=== PATIENT | male | born 1955 | race Caucasian/White ===

== ENCOUNTER 2021-03-23 10:46 | Outpatient (REF) | payer BC, SELFPAY ==
--- NOTE | ~2021-03-23 | FL_ITS ---
EXAMINATION: FL BARIUM SWALLOW CLINICAL INFORMATION: Dysphagia. COMPARISON: None. TECHNIQUE: Barium swallow examination is performed using fluoroscopic evaluation in addition to multiple fluoroscopic spot views. The patient is imaged both upright and prone and using both thick and thin sulfate along with effervescent granules. Fluoroscopy time: 1.7 minutes DAP: 12.223 Gycm2 Images: 41 FINDINGS: Following oral administration of thick barium, barium-coated turkey and effervescent granules, there is normal propagation of bolus from the oral cavity through the pharynx and esophagus and into the stomach in the upright view. On administration of thin barium in upright view and supine view, there is normal propagation of bolus into the esophagus and stomach without obstruction. There is no laryngeal penetration or aspiration. No gastroesophageal reflux or hiatal hernia seen in supine lying position. FL/FL barium swallow IMPRESSION: Unremarkable barium swallow exam.
== END 2021-03-23 10:47 | disposition home or self-care (01) ==
LOC: HO.XRAY 10:46
PROVIDERS: PCP Internal Medicine; Visit Provider Otolaryngology
DX: R13.10 Dysphagia, unspecified (principal)
CPT/HCPCS: 74220

== ENCOUNTER 2022-06-07 07:25 | Day surgery (SDC) | payer BC, SELFPAY ==
[2022-06-02 13:52] VITALS: BMI 28.5
--- NOTE | 2022-06-04 09:41 | MHC.SHP ---
Pre-Procedural Eval Section A Date of Service: 06/04/22 The patient is an INPATIENT: No Changes since office visit: No Cold of Flu in the past 2 weeks, No New Medical Problems, No Changes in Medication and No Patient answered all questions The History & Physical has been completed within 30 days and I have reviewed it.: Yes Section B Chief Complaint: Age-related nuclear cataract, right eye Allergies: Allergies Allergy/AdvReac Type Severity Reaction Status Date / Time No Known Drug Allergies Allergy Unknown NONE Unverified 11/15/19 17:59 [NO KNOWN DRUG ALLERGIES] Plan Diagnosis/Plan: Unchanged I have reviewed the history and physical and performed a pertinent physical examination on my patient. No changes have occurred unless specified. Time Spent With Patient Time: Total time managing care of this patient today ____ minutes.
[2022-06-07 08:22] VITALS: BP 146/86; PULSE 56; RESP 18; TEMP 36.6; O2SAT 99
[2022-06-07] MEDS: Tetracaine HCl/PF 0.5% Oph Sol 4 ML DROPS 1 DROP EYE-RIGHT (08:23)
[2022-06-07] MEDS: Phenylephrine HCL 2.5% Oph SoL 2 ML BOTTLE 1 DROP EYE-RIGHT ×3 (08:24→08:33)
[2022-06-07] MEDS: Tropicamide 1 % Ophth Sol 3 ML BTL 1 DROP EYE-RIGHT ×3 (08:24→08:34)
[2022-06-07] MEDS: Ketorolac Tromethamine 0.5% Op 5 ML DROPS 1 DROP EYE-RIGHT ×3 (08:24→08:34)
[2022-06-07] MEDS: Cyclopentolate 1 % Ophth Sol 2 ML DRPBTL 1 DROP EYE-RIGHT ×3 (08:24→08:34)
[2022-06-07] MEDS: Lactated Ringers 500 ML 50 ML IVCONT (08:34)
--- NOTE | 2022-06-07 08:48 | HO.ANESPROP2 ---
HPI - Anesthesia Eval Consult details Narrative: 66 M for right catarct extraction CAD s/p stent placement . no CP . functional status greater than 4 mets As per PCP , optimized to proceed with procedure PMFSH Past Medical History Medical History Benign hypertension Cataract GERD (gastroesophageal reflux disease) History of CAD (coronary artery disease) Hx of myocardial infarction Hyperlipidemia Meralgia paraesthetica Functional capacity: independent ambulation Family History Family history of problems with anesthesia: No Surgical History History of Problems with Anesthesia: No Social History Social History Patient Tobacco Use Status: Never used Tobacco Are you DNR?: No Advance Directives: No Advance Directives Information Provided: Yes Nutrition Risks: No Nutritional Risk Meds Allergies Allergy/AdvReac Type Severity Reaction Status Date / Time No Known Drug Allergies Allergy Unknown NONE Verified 06/07/22 08:35 [NO KNOWN DRUG ALLERGIES] Active Medications: Current Medications Lactated Ringer's (Lr) 500 mls @ 50 mls/hr IVCONT .Q10H GEORGE Last Admin: 06/07/22 08:34 Dose: 50 mls/hr Povidone Iodine (Povidone Iodine 5 % Ophth Soln 30 Ml Bottle) 1 appl EYE-RIGHT PREOP PRN PRN Reason: Pre-Op Surgical Implant Prophy Home Medications Medication Instructions Recorded Confirmed Last Taken Type amlodipine 5 mg tablet 5 mg PO DAILY 06/02/22 06/02/22 06/07/22 History aspirin 81 mg tablet,delayed 81 mg PO DAILY 06/02/22 06/02/22 Unknown History release atorvastatin 40 mg tablet 40 mg PO BEDTIME 06/02/22 06/02/22 Unknown History metoprolol succinate 50 mg 50 mg PO DAILY 06/02/22 06/02/22 Unknown History tablet,extended release 24 hr Exam Exam Date and Time: June 07, 2022 0848 Height,Weight and Vital Signs: Height 5 ft 5 in Weight 77.734 kg Last Vital Signs Temp 97.9 F 06/07/22 08:22 Pulse 56 06/07/22 08:22 Resp 18 06/07/22 08:22 BP 146/86 H 06/07/22 08:22 Pulse Ox 99 06/07/22 08:22 O2 Del Method Room Air 06/07/22 08:22 Airway Mallampati Class: IV Neck ROM: Full Loose/Missing/Broken Teeth: Yes (fillings , caps ) Assessment and Plan Assessment Anesthesia Assessment: Anesthesia Plan Discussed and Chart Reviewed Final Anesthetic Review Family History of Problems with Anesthesia: No History of Problems with Anesthesia: No NPO: Yes ASA Class: III Final Preanesthetic Review: Meds/Allgs Chart Reviewed, Consent Obtained/Reviewed and Anes Risks/Benef Reviewed Patient Risk: Intermediate Procedure Risk: Intermediate Anesthetic Plan Anesthetic Plan: MAC: Disposition: Standard PACU
--- NOTE | 2022-06-07 09:12 | HO.PNOPHT ---
Ophthalmology Procedure Procedure Date of Service: 06/07/22 Ophthalmology Viscoelastic: Healthomas Duet Dual Pack Pro Ophthalmology Lenses: TECNIS [id number] (18.5) Procedure Notes: PREOPERATIVE DIAGNOSIS: Decreased visual acuity right eye secondary to cataract POSTOPERATIVE DIAGNOSIS: Same PROCEDURE: Right cataract extraction with intraocular lens insertion SURGEON: Juan Alberto Bowen M.D. ANESTHESIA: Topical/MAC ESTIMATED BLOOD LOSS: None COMPLICATIONS: None After obtaining informed consent, the patient was brought to the operating room suite and placed in the supine position. After adequate sedation per anesthesia, topical drops of Tetracaine were given to the right eye. The eye was then prepped and draped in the usual sterile fashion. The operating room microscope was then positioned over the operative eye and a lid speculum placed. A paracentesis was created. Viscoelastic was then instilled into the anterior chamber. A three plane incision was then created temporally, utilizing a 2.85 mm keratome. Capsulotomy forceps were then utilized to create a circular tear capsulotomy. Hydrodissection and hydrodelineation were carried out until adequate mobilization of the nucleus occurred. Phacoemulsification was then utilized to remove the dense central nucleus followed by removal of the cortical material utilizing the automated aspiration irrigation unit. Viscoelastic was instilled into the posterior capsular bag followed by placement of a posterior chamber intraocular lens without difficulty. The residual Viscoelastic was then removed utilizing the automated IA machine. The wound was checked and found to be watertight. The patient tolerated the procedure well and the lid speculum was removed. Intracameral injection of Vigamox 0.1 mL followed by a subtenon injection of Kenalog-40 0.2 mL were administered. The patient will be seen in the a.m.
[2022-06-07 09:39] VITALS: BP 143/77; PULSE 53; RESP 16; TEMP 36.2; O2SAT 99
== END 2022-06-07 09:46 | disposition home or self-care (01) ==
PROVIDERS: PCP Internal Medicine; Visit Provider Ophthalmology
PROC: (CPT 66985; principal; 2022-06-07 09:30)
DX: H25.11 Age-related nuclear cataract, right eye (principal); I10 Essential (primary) hypertension
CPT/HCPCS: 66984; J2250; J3010; J3301; V2632

== ENCOUNTER 2022-06-21 06:53 | Day surgery (SDC) | payer BC, SELFPAY ==
[2022-06-02 13:53] VITALS: BMI 28.5
--- NOTE | 2022-06-17 15:50 | MHC.SHP ---
Pre-Procedural Eval Section A Date of Service: 06/17/22 The patient is an INPATIENT: No Changes since office visit: No Cold of Flu in the past 2 weeks, No New Medical Problems, No Changes in Medication and No Patient answered all questions The History & Physical has been completed within 30 days and I have reviewed it.: Yes Section B Chief Complaint: Age-related nuclear cataract, left eye Allergies: Allergies Allergy/AdvReac Type Severity Reaction Status Date / Time No Known Drug Allergies Allergy Unknown NONE Verified 06/07/22 08:35 [NO KNOWN DRUG ALLERGIES] Plan Diagnosis/Plan: Unchanged I have reviewed the history and physical and performed a pertinent physical examination on my patient. No changes have occurred unless specified. Time Spent With Patient Time: Total time managing care of this patient today ____ minutes.
[2022-06-21 07:38] VITALS: BP 137/76; PULSE 64; RESP 16; TEMP 36.3; O2SAT 99
[2022-06-21 07:45] VITALS: BMI 27.9
[2022-06-21] MEDS: Tetracaine HCl/PF 0.5% Oph Sol 4 ML DROPS 1 DROP EYE-LEFT (07:50)
--- NOTE | 2022-06-21 07:50 | HO.ANESPROP2 ---
HPI - Anesthesia Eval Consult details Narrative: Left eye cataract + IOL [facility] Past Medical History Medical History Benign hypertension Cataract GERD (gastroesophageal reflux disease) History of CAD (coronary artery disease) Hx of myocardial infarction Hyperlipidemia Meralgia paraesthetica Family History Family history of problems with anesthesia: No Surgical History Surgical History History of elbow surgery History of surgery on lower extremity History of Problems with Anesthesia: No Social History Social History Patient Tobacco Use Status: Never used Tobacco Use of substances other than those prescribed or required for medical reasons: No Are you DNR?: No Advance Directives: No Advance Directives Information Provided: Yes Meds Allergies Allergy/AdvReac Type Severity Reaction Status Date / Time No Known Drug Allergies Allergy Unknown NONE Verified 06/21/22 07:42 [NO KNOWN DRUG ALLERGIES] Active Medications: Current Medications Cyclopentolate HCl (Cyclopentolate 1 % Ophth Anca 2 Ml Drpbtl) 1 drop EYE-LEFT Q5M GEORGE Stop: 06/21/22 07:56 Lactated Ringer's (Lr) 500 mls @ 50 mls/hr IV .Q10H GEORGE Stop: 06/21/22 17:44 Ketorolac Tromethamine (Ketorolac Tromethamine 0.5% Op 5 Ml Drops) 1 drop EYE-LEFT Q5M GEORGE Stop: 06/21/22 07:56 Phenylephrine HCl (Phenylephrine Hcl 2.5% Oph Anca 2 Ml Bottle) 1 drop EYE-LEFT Q5M GEORGE Stop: 06/21/22 07:56 Povidone Iodine (Povidone Iodine 5 % Ophth Soln 30 Ml Bottle) 1 appl EYE-LEFT PREOP PRN PRN Reason: Pre-Op Surgical Implant Prophy Tropicamide (Tropicamide 1 % Ophth Anca 3 Ml Btl) 1 drop EYE-LEFT Q5M GEORGE Stop: 06/21/22 07:56 Home Medications Medication Instructions Recorded Confirmed Last Taken Type amlodipine 5 mg tablet 5 mg PO DAILY 06/02/22 06/21/22 06/21/22 History aspirin 81 mg tablet,delayed 81 mg PO DAILY 06/02/22 06/21/22 06/13/22 History release atorvastatin 40 mg tablet 40 mg PO BEDTIME 06/02/22 06/21/22 Unknown History metoprolol succinate 50 mg 50 mg PO DAILY 06/02/22 06/21/22 Unknown History tablet,extended release 24 hr Exam Exam Date and Time: June 21, 2022 0750 Height,Weight and Vital Signs: Height 5 ft 5 in Weight 76.204 kg Last Vital Signs Temp 97.3 F 06/21/22 07:38 Pulse 64 06/21/22 07:38 Resp 16 06/21/22 07:38 BP 137/76 06/21/22 07:38 Pulse Ox 99 06/21/22 07:38 O2 Del Method Room Air 06/21/22 07:38 Airway Mallampati Class: III TM Dist: >3cm Neck ROM: Full Loose/Missing/Broken Teeth: Yes (chipped and cracked globally) Heart: rrr+[id number] Lungs: cta b/l Assessment and Plan Assessment Anesthesia Assessment: Anesthesia Plan Discussed and Chart Reviewed Final Anesthetic Review Family History of Problems with Anesthesia: No History of Problems with Anesthesia: No NPO: Yes ASA Class: III Final Preanesthetic Review: No Changes in Pt Med Stat, Meds/Allgs Chart Reviewed, Consent Obtained/Reviewed and Anes Risks/Benef Reviewed Patient Risk: Intermediate Procedure Risk: Intermediate Assessment/Block/Sedation in SS: Assess/Block/Sedation-SS Anesthetic Plan Anesthetic Plan: MAC: and Agree w/ Assess. and Plan Disposition: Standard PACU
[2022-06-21] MEDS: Cyclopentolate 1 % Ophth Sol 2 ML DRPBTL 1 DROP EYE-LEFT ×3 (07:51→08:07)
[2022-06-21] MEDS: Tropicamide 1 % Ophth Sol 3 ML BTL 1 DROP EYE-LEFT ×3 (07:53→08:09)
[2022-06-21] MEDS: Ketorolac Tromethamine 0.5% Op 5 ML DROPS 1 DROP EYE-LEFT ×3 (07:55→08:11)
[2022-06-21] MEDS: Lactated Ringers 500 ML 50 ML IV (07:56)
[2022-06-21] MEDS: Phenylephrine HCL 2.5% Oph SoL 2 ML BOTTLE 1 DROP EYE-LEFT ×3 (07:57→08:13)
--- NOTE | 2022-06-21 08:36 | HO.PNOPHT ---
Ophthalmology Procedure Procedure Date of Service: 06/21/22 Ophthalmology Viscoelastic: Healthomas Duet Dual Pack Pro Ophthalmology Lenses: TECNIS [id number] (19.5) Procedure Notes: PREOPERATIVE DIAGNOSIS: Decreased visual acuity left eye secondary to cataract POSTOPERATIVE DIAGNOSIS: Same PROCEDURE: Left cataract extraction with intraocular lens insertion SURGEON: Juan Alberto Bowen M.D. ANESTHESIA: Topical/MAC ESTIMATED BLOOD LOSS: None COMPLICATIONS: None After obtaining informed consent, the patient was brought to the operation room suite and placed in the supine position. After adequate sedation per anesthesia, topical drops of Tetracaine were given to the left eye. The eye was then prepped and draped in the usual sterile fashion. The operating room microscope was then positioned over the operative eye and a lid speculum placed. A paracentesis was created. Viscoelastic was then instilled into the anterior chamber. A three plane incision was then created temporally, utilizing a 2.85 mm keratome. Capsulotomy forceps were then utilized to create a circular tear capsulotomy. Hydrodissection and hydrodelineation were carried out until adequate mobilization of the nucleus occurred. Phacoemulsification was then utilized to remove the dense central nucleus followed by removal of the cortical material utilizing the automated aspiration irrigation unit. Viscoat elastic was instilled into the posterior capsular bag followed by placement of a posterior chamber intraocular lens without difficulty. The residual Viscoat elastic was then removed utilizing the automated IA machine. The wound was check and found to be watertight. The patient tolerated the procedure well and the lid speculum was removed. Intracameral injection of Vigamox 0.1 mL followed by a subtenon injection of Kenalog-40 0.2 mL were administered. The patient will be seen in the a.m.
[2022-06-21 08:57] VITALS: BP 143/81; PULSE 62; RESP 18; TEMP 36.7; O2SAT 97
== END 2022-06-21 09:13 | disposition home or self-care (01) ==
PROVIDERS: PCP Internal Medicine; Visit Provider Ophthalmology
PROC: (CPT 66985; principal; 2022-06-21 08:50)
DX: H25.12 Age-related nuclear cataract, left eye (principal); H52.4 Presbyopia; H11.153 Pinguecula, bilateral; H18.413 Arcus senilis, bilateral; H31.001 Unspecified chorioretinal scars, right eye; I10 Essential (primary) hypertension; E78.00 Pure hypercholesterolemia, unspecified; Z79.899 Other long term (current) drug therapy
CPT/HCPCS: 66984; J2250; J3010; J3301; V2632

== ENCOUNTER 2022-09-23 09:04 | Outpatient (REF) | payer BC, SELFPAY ==
[2022-09-23 12:24] LABS: Cholesterol 118 mg/dL; HDL Cholesterol 44 mg/dL; LDL Cholesterol Calculated 58 mg/dl; Triglycerides 82 mg/dL
[2022-09-23 13:00] LABS: Alanine Aminotransferase 27 U/L (0-40); Albumin Level 4.3 g/dL (3.5-5.0); Alkaline Phosphatase 83 U/L (39-117); Anion Gap 13 (12-20); Aspartate Amino Transferase 22 U/L (5-37); Bilirubin Direct 0.3 mg/dL (0.0-0.5); Bilirubin Total 0.8 mg/dL (0.0-1.0); Blood Urea Nitrogen 13 mg/dL (9-16); Calcium 9.1 mg/dL (8.4-10.2); Carbon Dioxide 23 mmol/L (22-29); Chloride 107 mmol/L (96-108); Estimated Glomerular Filt Rate > 60; Glucose Random 96 mg/dL (60-115); Sodium 139 mmol/L (135-145); Total Protein 7.5 g/dL (6.5-8.0)
[2022-09-23 13:02] LABS: Prostate Specific Antigen 5.18 ng/mL (<0.05-4.0)
[2022-09-24 08:38] LABS: ~HepC Num1 0.09 S/CO (0.00-0.79); ~Hepatitis C Antibody Nonreactive (Nonreactive)
== END 2022-09-23 09:05 | disposition home or self-care (01) ==
LOC: HO.HHCL 09:04
PROVIDERS: Visit Provider Internal Medicine
DX: Z00.00 Encounter for general adult medical examination without abnormal findings (principal); Z12.5 Encounter for screening for malignant neoplasm of prostate; E78.2 Mixed hyperlipidemia; I10 Essential (primary) hypertension
CPT/HCPCS: 36415; 80048; 80061; 80076; 84153; 86803

== ENCOUNTER 2022-11-22 09:00 | Outpatient (AMB) | payer BC, SELFPAY ==
--- NOTE | 2022-11-22 09:08 | MHC.OFFVIS ---
Intake Intake Visit Reasons: Elevated PSA 5.18 Intake Note: New Patient presents for initial visit elevated psa (psa 5.18) Urology Medications: none Blood Thinner: aspirin Rag Sorter Required: Yes Rag Sorter Name: Nguyen Accompanied by: Self / Same As Patient Allergies No Known Drug Allergies [NO KNOWN DRUG ALLERGIES] Allergy (Unknown, Verified 11/22/22 09:54) NONE Medication List - Last Reconciled 11/22/22 by DUSTIN GutiérrezP- amlodipine 5 mg PO DAILY aspirin 81 mg PO DAILY atorvastatin 40 mg PO BEDTIME metoprolol succinate ER 50 mg PO DAILY tadalafil (Cialis) 5 mg PO DAILY 90 days HPI HPI Comments History of Present Illness Details Wilver is a very pleasant 67-year-old Armenian-speaking male patient of Dr. Galvez. He has a past medical history of cataracts, myocardial infarction with stent placement in 2005 in [place], CAD, GERD, hyperlipidemia, and hypertension. He presents to the office today as a new patient for an elevated PSA. In discussion with the patient today he reports to be doing and feeling well. In review of patient's chart it appears PSAs are as follows. 06/16--3.4 09/19--5.2 When asked patient reports family history of prostate cancer. He reports his father had prostate cancer and at the age of 92. He otherwise denies any bothersome urinary issues at this time. He denies urinary urgency, urinary frequency, incontinence, nocturia, hematuria, dysuria, foul smelling urine, changes to urinary stream, flank pain, fever, and or chills. He is happy with his current voiding parameters. He does however report noting issues with erectile dysfunction over the last 5-6 months. He reports previously he was able to obtain and maintain erections approximately 2 times per week to have sexual intercourse with his however has been having issues with premature ejaculation as well as erections are adequate for penetration. Discussed at length potential causes for elevated PSA. Discussed lifestyle modifications to assist with premature ejaculation as well as erectile dysfunction. In office urinalysis results reviewed with the patient today. JOVANI offered however patient reports PCP has already performed JOVANI and it was noted to be normal. [facility] Medical History Cataract Hx of myocardial infarction History of CAD (coronary artery disease) GERD (gastroesophageal reflux disease) Benign hypertension Hyperlipidemia Meralgia paraesthetica Surgical History History of elbow surgery History of surgery on lower extremity Social History Patient Tobacco Use Status: Never used Tobacco Review of Systems Const Reports as per HPI Eyes Reports no additional complaints ENT Reports no additional complaints Card Reports as per HPI Resp Reports no additional complaints GI Reports as per HPI Reports as per HPI Musc Reports no additional complaints Neuro Reports no additional complaints Psych Reports no additional complaints Endo Reports no additional complaints Rios/Lymph Reports no additional complaints Aller/Immun Reports no additional complaints Physical Exam Const General: cooperative, healthy appearing, comfortable, no acute distress, well developed, alert and awake Orientation/consciousness: patient oriented x3 Limitations: no limitations HEENT Head: Yes normal to inspection, Yes normocephalic and Yes atraumatic Ears: hearing grossly normal bilaterally Eyes General: appearance normal, both eyes and all related structures Neck Neck: Yes normal visual inspection and Yes trachea midline Chest Chest palpation & inspection: normal inspection of the chest Resp Effort & Inspection: normal respiratory effort and able to speak in complete sentences Cardio Rate: regular rate GI Inspection: Yes normal to inspection General: Yes no CVA tenderness Back/Spine/Pelvis Back: no CVA tenderness Skin General skin exam: no rashes or lesions noted Neuro General: patient oriented x3 Extrem General: Yes normal to inspection Psych Appearance: grossly normal and well kempt Mental Status: mental status grossly normal Speech and movement: Normal speech and movement present and Clear speech present Affect: normal affect Attitude: cooperative Thought process: Normal thought process present Thought content: Normal thought content present Insight: Good insight present (Psych) Judgement: Good judgement present (Psych) Results AMB Urinalysis, Automated UA Leukoctes 0 Nikunj/uL Last Edit by Ash Coe on 11/22/22 09:34 UA Nitrite Negative Last Edit by Ash Coe on 11/22/22 09:34 UA Urobilinogen 0.2 mg/dL Last Edit by Ash Coe on 11/22/22 09:34 UA Protein 0 mg/dL Last Edit by Ash Coe on 11/22/22 09:34 UA pH 5.5 Last Edit by Ash Coe on 11/22/22 09:34 UA Blood 0 Juan Diego/uL Last Edit by Ash Arcenicolas on 11/22/22 09:34 UA Specific [place] 1.025 Last Edit by Ash Arcenicolas on 11/22/22 09:34 UA Ketone Negative Last Edit by Kemkhurram Yazminnicolas on 11/22/22 09:34 UA Bilirubin 0 mg/dL Last Edit by Kemkhurram Yazminnicolas on 11/22/22 09:34 UA Glucose 0 mg/dL Last Edit by Kemkhurram Yazminnicolas on 11/22/22 09:34 Results Reviewed Results Reviewed: Laboratory Last Values Urine pH (Auto) 5.5 11/22/22 09:19 Specific [place] (Auto) 1.025 11/22/22 09:19 Urine Protein (Auto) 0 mg/dL 11/22/22 09:19 Glucose (UA)(Auto) 0 mg/dL 11/22/22 09:19 Urine Ketones (Auto) Negative 11/22/22 09:19 Urine Blood (Auto) 0 Juan Diego/uL 11/22/22 09:19 Urine Nitrite (Auto) Negative 11/22/22 09:19 Urine Bilirubin (Auto) 0 mg/dL 11/22/22 09:19 Urine Urobilinogen (Auto) 0.2 mg/dL 11/22/22 09:19 Leukocyte Esterase (Auto) 0 Nikunj/uL 11/22/22 09:19 Assessment & Plan Assessment & Plan (1) Elevated PSA: Code(s): R97.20 - Elevated prostate specific antigen [PSA] (2) Erectile dysfunction: Code(s): N52.9 - Male erectile dysfunction, unspecified Plan In office urinalysis results reviewed with the patient today. PSA results reviewed with the patient today; as noted above. Discussed obtaining redraw of PSA with no sex the night before, no caffeine morning of, and no heavy lifting 1-2 days prior to lab draw. Discussed obtaining retroperitoneal ultrasound for further assessment evaluation. Start 5 mg of Cialis daily as discussed and prescribed. Discussed lifestyle modifications with premature ejaculation and erectile dysfunction Discussed at length potential causes for elevated PSA Follow-up in 6 weeks with lab and imaging to be completed prior; or sooner with any issues, concerns, and or questions. Orders: Orders AMB Urinalysis Automated Today Z13.9 - Encounter for screening, unspecified US retroperitoneal comp Today R39.9 - Unspecified symptoms and signs involving the genitourinary system PSA,Total (Free>4and<10) Today R97.20 - Elevated prostate specific antigen [PSA] Medications: New tadalafil (Cialis) JANIE [id number] [facility] Group [id number] 5 mg PO DAILY 90 days 90 tabs 0RF Patient Instructions: The patient had an opportunity to ask questions regarding the treatment plan. All questions were answered. Physical exam, labs, and imaging were discussed and reviewed in detail. As well as risks, benefits, and discussion of treatment choices. No major barriers to understanding were identified. The patient expressed understanding and agreement with the above treatment plan. The patient was made aware they should contact our office by phone for worsening of their current condition, the appearance of new symptoms, or with any questions or concerns. Compliance is encouraged with any medications and follow up testing that is ordered. It is a privilege to be allowed the opportunity to participate in? your urological care.? Again, if you have any questions or concerns If you have any questions or concerns please do not hesitate to contact me. The office is [phone]. This note is constructed using voice recognition software. While every effort has been made to ensure accuracy director of compliance errors may have been included. Yours sincerely, CARLITO Gutiérrez Coding Level of Care Code New Pt Level 4 (04981) Diagnoses Elevated PSA R97.20 Erectile dysfunction N52.9
== END 2022-11-22 09:53 | disposition home or self-care (01) ==
PROVIDERS: PCP Internal Medicine; Visit Provider Nurse Practitioner Family
DX: R97.20 Elevated prostate specific antigen [PSA] (principal); N52.9 Male erectile dysfunction, unspecified; Z13.9 Encounter for screening, unspecified
CPT/HCPCS: 99204

== ENCOUNTER → 2022-11-22 09:00 | Outpatient (BNVA) | payer BC, SELFPAY | PROVIDERS: PCP Internal Medicine; Visit Provider Nurse Practitioner Family | DX: R97.20 Elevated prostate specific antigen [PSA] (principal); N52.9 Male erectile dysfunction, unspecified | CPT/HCPCS: 81003 ==

== ENCOUNTER 2022-12-08 11:19 | Outpatient (AMB) | payer BC, SELFPAY ==
--- NOTE | 2022-12-08 11:34 | MHC.OFFVIS ---
Intake Vital Signs 12/08/22 11:35 Height 5 ft 5 in Weight 169 lb BMI 28.1 BP 123/71 Blood Pressure Location Rt brachial Position Sitting Intake Visit Reasons: Recall colonoscopy Intake Note: This patient presents for an assessment for recall colonoscopy screening. Patient c/o; last colonoscopy 10/04/2011, reports no issues or complaints at this time. Sanding Machine Tender Required: Yes Sanding Machine Tender Language: Acidizer Name: Trey Information Interpreted: non-clinical & clinical Accompanied by: Self / Same As Patient Allergies No Known Drug Allergies [NO KNOWN DRUG ALLERGIES] Allergy (Unknown, Verified 12/08/22 11:41) NONE Medication List - Last Reconciled 12/08/22 by Timo Kaye MD amlodipine 5 mg PO DAILY atorvastatin 40 mg PO BEDTIME metoprolol succinate ER 50 mg PO DAILY tadalafil (Cialis) 5 mg PO DAILY 90 days HPI Recall colonoscopy HPI Details 67-year-old male referred for screening colonoscopy. His last colonoscopy was in 2011. This was unremarkable at that time except for what appeared to be an anal fissure. He denies any GI complaints. He denies any family history of colon cancer. He says he is in good health overall. [facility] Medical History (Updated 12/08/22 @ 11:56 by Timo Kaye MD) Encounter for screening colonoscopy Cataract Hx of myocardial infarction History of CAD (coronary artery disease) GERD (gastroesophageal reflux disease) Benign hypertension Hyperlipidemia Meralgia paraesthetica Surgical History History of elbow surgery History of surgery on lower extremity Family History (Updated 12/08/22 @ 11:43 by TRACE Guy) Father Prostate cancer Social History Patient Tobacco Use Status: Never used Tobacco Review of Systems Const Denies chills and Denies fever(s) Card Denies chest pain, Denies dyspnea and Denies dyspnea on exertion Resp Denies cough, Denies dyspnea and Denies dyspnea on exertion GI Denies hematochezia and Denies change in bowel habits Denies hematuria and Denies difficulty urinating Musc Denies back pain and Denies limited range of motion Neuro Denies focal weakness and Denies convulsions Psych Denies depression and Denies mood swings Physical Exam Vital Signs: Last Vital Signs BP 123/71 12/08/22 11:35 BMI result Body Mass Index 28.1 Const General: comfortable and no acute distress Orientation/consciousness: patient oriented x3 Neck Neck: Yes no lymphadenopathy Resp Auscultation: clear to auscultation bilaterally Cardio Rhythm: regular rhythm GI Palpation (GI): Soft to palpation, nontender and no guarding Neuro General: patient oriented x3 Assessment & Plan Assessment & Plan (1) Encounter for screening colonoscopy: Code(s): Z12.11 - Encounter for screening for malignant neoplasm of colon Plan: I explained him the technique of colonoscopy for screening. I reviewed the risks including but not limited to bleeding and perforation, as well as the benefits and alternatives. He understands he wants to proceed. Coding Level of Care Code New Pt Level 3 (11124) Diagnoses Encounter for screening colonoscopy Z12.11
[2022-12-08 11:35] VITALS: BP 123/71; BMI 28.1
== END 2022-12-08 12:04 | disposition home or self-care (01) ==
PROVIDERS: PCP Internal Medicine; Referring Provider Internal Medicine; Visit Provider Surgery
DX: Z12.11 Encounter for screening for malignant neoplasm of colon (principal)
CPT/HCPCS: 99203

== ENCOUNTER → 2022-12-08 11:19 | Outpatient (BNVA) | payer BC, SELFPAY | PROVIDERS: PCP Internal Medicine; Referring Provider Internal Medicine; Visit Provider Surgery ==

== ENCOUNTER 2022-12-28 09:00 | Outpatient (REF) | payer BC, SELFPAY ==
[2022-12-28 12:10] LABS: PSA,Total (Free>4and<10) 4.82 ng/mL (0.00-4.00)
[2022-12-29 10:23] LABS: Free Prostate Spec Ag 0.5 ng/mL; Percent Free Prostate Spec Ag 13 % (calc) (>25)
== END 2022-12-28 09:01 | disposition home or self-care (01) ==
LOC: HO.HHCL 09:00
PROVIDERS: Visit Provider Nurse Practitioner Family
DX: Z12.5 Encounter for screening for malignant neoplasm of prostate (principal); R97.20 Elevated prostate specific antigen [PSA]
CPT/HCPCS: 36415; 84153; 84154

== ENCOUNTER 2023-01-03 09:35 | Outpatient (REF) | payer BC, SELFPAY ==
--- NOTE | ~2023-01-03 | US_ITS ---
EXAMINATION: US RETROPERITONEAL COMPLETE (RENAL) CLINICAL INFORMATION: Elevated PSA. COMPARISON: None available. TECHNIQUE: Real-time imaging of the kidneys and bladder. Limited visualization due to bowel gas. FINDINGS: RIGHT KIDNEY: 10.9 x 4.7 x 5.6 cm (SAG x AP x TRV). No hydronephrosis. No renal calculi. Renal cortical thickness is normal. Limited visualization. LEFT KIDNEY: 11.9 x 7.7 x 6.7 cm (SAG x AP x TRV). No hydronephrosis. No renal calculi. Renal cortical thickness is normal. Limited visualization. BLADDER: Well distended and unremarkable. Bilateral ureteral jets are demonstrated. Prevoid bladder volume is 249.0 mL. Postvoid bladder volume is 37.0 mL. The prostate volume is 28.0 mL. US/US retroperitoneal comp IMPRESSION: No hydronephrosis. No renal calculi. Limited visualization. Prostate volume 28.0 mL. Postvoid bladder volume is 37.0 mL.
== END 2023-01-03 09:36 | disposition home or self-care (01) ==
LOC: HO.US 09:35
PROVIDERS: PCP Internal Medicine; Visit Provider Nurse Practitioner Family
DX: R39.9 Unspecified symptoms and signs involving the genitourinary system (principal)
CPT/HCPCS: 76770

== ENCOUNTER 2023-01-04 08:15 | Outpatient (AMB) | payer BC, SELFPAY ==
--- NOTE | 2023-01-04 08:19 | MHC.OFFVIS ---
Intake Intake Visit Reasons: 6w/US/PSA(set) Intake Note: Patient presents for follow up visit elevated psa/ultrasound (psa 4.82) (imaging 01/03/23) Urology Medications: tadalafil Blood Thinner: none Tie Mill Operator Required: Yes Tie Mill Operator Name: JAMAL RACHELReese MICHEL Accompanied by: Self / Same As Patient Allergies No Known Drug Allergies [NO KNOWN DRUG ALLERGIES] Allergy (Unknown, Verified 01/05/23 16:35) NONE Medication List - Last Reconciled 01/05/23 by MAKAYLA Gutiérrez- amlodipine 5 mg PO DAILY atorvastatin 40 mg PO BEDTIME finasteride 5 mg PO DAILY 90 days metoprolol succinate ER 50 mg PO DAILY sodium,potassium,mag sulfates 17.5-3.13-1.6 gram (Suprep Bowel Prep Kit) DILUTE; drink full amount early evening before AND next morning at least 2 hr before procedure; follow w 960 mL water PO tadalafil (Cialis) 5 mg PO DAILY 90 days HPI HPI Comments History of Present Illness Details Wilver is a very pleasant 67-year-old Albanian-speaking male patient of Dr. Galvez. He has a past medical history of cataracts, myocardial infarction with stent placement in 2005 in [place], CAD, GERD, hyperlipidemia, and hypertension. He presents to the office today for follow-up. Of note, patient was seen approximately 6 weeks ago as a new patient for an elevated PSA at which time a retroperitoneal ultrasound and redraw of PSA were ordered for further assessment evaluation. These results reviewed with the patient today. Bilateral kidneys with no calculi and or hydronephrosis noted. The bladder is well distended and unremarkable. Prostate volume is approximately 28 mL. PSAs are as follows. 06/16--3.4 09/19--5.2 12/20--4.8 % free PSA 13% Patient with a family history of prostate cancer. He reports his father had prostate cancer at the age of 92. He otherwise denies any bothersome urinary issues at this time. He denies urinary urgency, urinary frequency, incontinence, nocturia, hematuria, dysuria, foul smelling urine, changes to urinary stream, flank pain, fever, and or chills. He is happy with his current voiding parameters. PCPT risk calculator reviewed 49% chance at biopsy is negative for prostate cancer, 36% chance of low-grade prostate cancer, and 15% chance of high-grade prostate cancer. Discussed at length prostate biopsy versus surveillance monitoring verses trial finasteride. Discussed risks and benefits of these interventions at length. He otherwise offers no other issues or concerns at this time. COUNTS INCLUDE 234 BEDS AT THE [facility] Medical History Encounter for screening colonoscopy Cataract Hx of myocardial infarction History of CAD (coronary artery disease) GERD (gastroesophageal reflux disease) Benign hypertension Hyperlipidemia Meralgia paraesthetica Surgical History History of elbow surgery History of surgery on lower extremity Family History Father Prostate cancer Social History Patient Tobacco Use Status: Never used Tobacco Review of Systems Const Reports as per HPI Eyes Reports no additional complaints ENT Reports no additional complaints Card Reports as per HPI Resp Reports no additional complaints GI Reports as per HPI Reports as per HPI Musc Reports no additional complaints Neuro Reports no additional complaints Psych Reports no additional complaints Endo Reports no additional complaints Rios/Lymph Reports no additional complaints Aller/Immun Reports no additional complaints Physical Exam Const General: cooperative, healthy appearing, comfortable, no acute distress, well developed, alert and awake Orientation/consciousness: patient oriented x3 Limitations: no limitations HEENT Head: Yes normal to inspection, Yes normocephalic and Yes atraumatic Ears: hearing grossly normal bilaterally Eyes General: appearance normal, both eyes and all related structures Neck Neck: Yes normal visual inspection and Yes trachea midline Chest Chest palpation & inspection: normal inspection of the chest Resp Effort & Inspection: normal respiratory effort and able to speak in complete sentences Cardio Rate: regular rate GI Inspection: Yes normal to inspection General: Yes no CVA tenderness Back/Spine/Pelvis Back: no CVA tenderness Skin General skin exam: no rashes or lesions noted Neuro General: patient oriented x3 Extrem General: Yes normal to inspection Psych Appearance: grossly normal and well kempt Mental Status: mental status grossly normal Speech and movement: Normal speech and movement present and Clear speech present Affect: normal affect Attitude: cooperative Thought process: Normal thought process present Thought content: Normal thought content present Insight: Good insight present (Psych) Judgement: Good judgement present (Psych) Results AMB Urinalysis, Automated UA Leukoctes 0 Nikunj/uL Last Edit by Ash Coe on 01/04/23 08:31 UA Nitrite Negative Last Edit by Innovacenekhurram Coe on 01/04/23 08:31 UA Urobilinogen 0.2 mg/dL Last Edit by Ash Coe on 01/04/23 08:31 UA Protein 0 mg/dL Last Edit [facility] on 01/04/23 08:31 UA pH 6.0 Last Edit by Liftagowarren Coe on 01/04/23 08:31 UA Blood 0 Juan Diego/uL Last Edit by Keelrnicolas on 01/04/23 08:31 UA Specific [place] 1.025 Last Edit by [facility] on 01/04/23 08:31 UA Ketone Negative Last Edit by Liftagowarren Coe on 01/04/23 08:31 UA Bilirubin 0 mg/dL Last Edit by [facility] on 01/04/23 08:31 UA Glucose 0 mg/dL Last Edit by [facility] on 01/04/23 08:31 Results Reviewed Results Reviewed: Laboratory Last Values Urine pH (Auto) 6.0 01/04/23 08:25 Specific [place]ak (Auto) 1.025 01/04/23 08:25 Urine Protein (Auto) 0 mg/dL 01/04/23 08:25 Glucose (UA)(Auto) 0 mg/dL 01/04/23 08:25 Urine Ketones (Auto) Negative 01/04/23 08:25 Urine Blood (Auto) 0 Juan Diego/uL 01/04/23 08:25 Urine Nitrite (Auto) Negative 01/04/23 08:25 Urine Bilirubin (Auto) 0 mg/dL 01/04/23 08:25 Urine Urobilinogen (Auto) 0.2 mg/dL 01/04/23 08:25 Leukocyte Esterase (Auto) 0 Nikunj/uL 01/04/23 08:25 Date of Service: 01/03/23 EXAMINATION: US RETROPERITONEAL COMPLETE (RENAL) FINDINGS: RIGHT KIDNEY: 10.9 x 4.7 x 5.6 cm (SAG x AP x TRV). No hydronephrosis. No renal calculi. Renal cortical thickness is normal. Limited visualization. LEFT KIDNEY: 11.9 x 7.7 x 6.7 cm (SAG x AP x TRV). No hydronephrosis. No renal calculi. Renal cortical thickness is normal. Limited visualization. BLADDER: Well distended and unremarkable. Bilateral ureteral jets are demonstrated. Prevoid bladder volume is 249.0 mL. Postvoid bladder volume is 37.0 mL. The prostate volume is 28.0 mL. IMPRESSION: No hydronephrosis. No renal calculi. Limited visualization. Prostate volume 28.0 mL. Postvoid bladder volume is 37.0 mL. Assessment & Plan Assessment & Plan (1) Elevated PSA: Code(s): R97.20 - Elevated prostate specific antigen [PSA] Plan In office urinalysis results reviewed with the patient today; as noted above. Recent retroperitoneal ultrasound results reviewed with the patient today; as noted above. Recent PSA results reviewed with the patient today; as noted above. Start finasteride as discussed and prescribed. Discussed at length prostate biopsy verses surveillance monitoring verses trial finasteride; discussed risks and benefits of these interventions at length Patient denies any bothersome urinary issues or concerns at this time. Patient is happy with current voiding parameters on 5 mg of Cialis daily. Will obtain PSA in 4 months. Follow-up in 4 months with lab to be completed prior; or sooner with any issues, concerns, and or questions. Orders: Orders AMB Urinalysis Automated 01/04/23 Z13.9 - Encounter for screening, unspecified PSA,Total (Free>4and<10) 4 Months R97.20 - Elevated prostate specific antigen [PSA] Medications: New finasteride 5 mg PO DAILY 90 days 90 tabs 1RF N13.8 - Other obstructive and reflux uropathy, N40.1 - Benign prostatic hyperplasia with lower urinary tract symptoms, R33.9 - Retention of urine, unspecified Patient Instructions: The patient had an opportunity to ask questions regarding the treatment plan. All questions were answered. Physical exam, labs, and imaging were discussed and reviewed in detail. As well as risks, benefits, and discussion of treatment choices. No major barriers to understanding were identified. The patient expressed understanding and agreement with the above treatment plan. The patient was made aware they should contact our office by phone for worsening of their current condition, the appearance of new symptoms, or with any questions or concerns. Compliance is encouraged with any medications and follow up testing that is ordered. It is a privilege to be allowed the opportunity to participate in? your urological care.? Again, if you have any questions or concerns If you have any questions or concerns please do not hesitate to contact me. The office is [phone]. This note is constructed using voice recognition software. While every effort has been made to ensure accuracy washer machine errors may have been included. Yours sincerely, CARLITO Gutiérrez Coding Level of Care Code Est Pt Level 4 (75895) Diagnoses Elevated PSA R97.20
== END 2023-01-04 08:58 | disposition home or self-care (01) ==
PROVIDERS: PCP Internal Medicine; Visit Provider Nurse Practitioner Family
DX: R97.20 Elevated prostate specific antigen [PSA] (principal)
CPT/HCPCS: 99214

== ENCOUNTER → 2023-01-04 08:15 | Outpatient (BNVA) | payer BC, SELFPAY | PROVIDERS: PCP Internal Medicine; Visit Provider Nurse Practitioner Family | DX: R97.20 Elevated prostate specific antigen [PSA] (principal); Z80.42 Family history of malignant neoplasm of prostate | CPT/HCPCS: 81003 ==

== ENCOUNTER 2023-01-18 05:56 | Day surgery (SDC) | payer BC, SELFPAY ==
[2023-01-13 12:46] VITALS: BMI 29.3
--- NOTE | 2023-01-17 09:03 | HO.ANESPROP2 ---
Documented by User: Josefina Rosales NP 01/17/23 09:06 HPI - Anesthesia Eval Consult details Narrative: 67yo M for Colonoscopy,Poss Polypectomy PMFSH Active Problems Active Problems: All Active Problems (Updated 12/08/22 @ 11:56 by Timo Kaye MD) Encounter for screening colonoscopy (Acute) Erectile dysfunction (Acute) Lower urinary tract symptoms (Acute) Elevated PSA (Acute) Past Medical History Medical History Encounter for screening colonoscopy Cataract Hx of myocardial infarction History of CAD (coronary artery disease) GERD (gastroesophageal reflux disease) Benign hypertension Hyperlipidemia Meralgia paraesthetica Family History Family History Father Prostate cancer Family history of problems with anesthesia: No Surgical History Surgical History History of cataract surgery H/O colonoscopy History of elbow surgery History of surgery on lower extremity History of Problems with Anesthesia: No Social History Social History Patient Tobacco Use Status: Never used Tobacco Meds Allergies Allergy/AdvReac Type Severity Reaction Status Date / Time No Known Drug Allergies Allergy Unknown NONE Verified 01/18/23 06:17 [NO KNOWN DRUG ALLERGIES] Home Medications Medication Instructions Recorded Confirmed Last Taken Type amlodipine 5 mg tablet 5 mg PO DAILY 06/02/22 01/18/23 06/21/22 History atorvastatin 40 mg tablet 40 mg PO BEDTIME 06/02/22 01/18/23 Unknown History metoprolol succinate 50 mg 50 mg PO DAILY 06/02/22 01/18/23 Unknown History tablet,extended release 24 hr Exam Height,Weight and Vital Signs: Height 5 ft 4 in Weight 77.564 kg Pertinent Lab Results Pertinent Lab Results: Laboratory Tests 06/05/18 09/23/22 12:05 09:09 WBC 6.3 Hgb 15.0 Hct 41.5 L Plt Count 248 Sodium 139 Potassium 4.0 Chloride 107 Carbon Dioxide 23 BUN 13 Creatinine 0.92 Assessment and Plan Assessment Anesthesia Assessment: Chart Reviewed Final Anesthetic Review Family History of Problems with Anesthesia: No History of Problems with Anesthesia: No Documented by User: Chela Powell MD 01/18/23 08:04 PMF Active Problems Active Problems: All Active Problems (Updated 01/18/23 @ 07:15 by Chela Powell MD) Encounter for screening colonoscopy (Acute) Erectile dysfunction (Acute) Lower urinary tract symptoms (Acute) Elevated PSA (Acute) Denies recent chest pain Past Medical History Medical History Encounter for screening colonoscopy Cataract Hx of myocardial infarction History of CAD (coronary artery disease) GERD (gastroesophageal reflux disease) Benign hypertension Hyperlipidemia Meralgia paraesthetica Family History Family History Father Prostate cancer Surgical History Surgical History History of cataract surgery H/O colonoscopy History of elbow surgery History of surgery on lower extremity Social History Social History Patient Tobacco Use Status: Never used Tobacco Meds Allergies Allergy/AdvReac Type Severity Reaction Status Date / Time No Known Drug Allergies Allergy Unknown NONE Verified 01/18/23 06:17 [NO KNOWN DRUG ALLERGIES] Home Medications Medication Instructions Recorded Confirmed Last Taken Type amlodipine 5 mg tablet 5 mg PO DAILY 06/02/22 01/18/23 06/21/22 History atorvastatin 40 mg tablet 40 mg PO BEDTIME 06/02/22 01/18/23 Unknown History metoprolol succinate 50 mg 50 mg PO DAILY 06/02/22 01/18/23 Unknown History tablet,extended release 24 hr Exam Height,Weight and Vital Signs: Height 5 ft 4 in Weight 77.564 kg Vital Signs Temp Pulse Resp BP Pulse Ox O2 Del Method 01/18/23 06:20 97.6 F 88 16 136/79 98 Room Air Airway Mallampati Class: II TM Dist: >3cm Neck ROM: Full Loose/Missing/Broken Teeth: Yes (Missing some teeth) Heart: RRR Lungs: CTAB Assessment and Plan Assessment Anesthesia Assessment: Anesthesia Plan Discussed Final Anesthetic Review NPO: Yes ASA Class: III Final Preanesthetic Review: No Changes in Pt Med Stat, Meds/Allgs Chart Reviewed, Consent Obtained/Reviewed and Anes Risks/Benef Reviewed Patient Risk: Intermediate Procedure Risk: Low Assessment/Block/Sedation in SS: Assess/Block/Sedation-SS Anesthetic Plan Anesthetic Plan: MAC: Disposition: Standard PACU
[2023-01-18 06:20] VITALS: BP 136/79; PULSE 88; RESP 16; TEMP 36.4; O2SAT 98; BMI 27.3
[2023-01-18] MEDS: Lactated Ringers 1,000 ML 100 ML IVCONT (06:34)
--- NOTE | 2023-01-18 07:24 | MHC.SHP ---
Pre-Procedural Eval Section A Date of Service: 01/18/23 Section B Chief Complaint: screening Details of Present Illness: for screening colonoscopy - last colonoscopy was in 2011 Relevant Social History: None Present Medications: see Short Stay Collaborative assessment Medical History: Significant History (hx of elevated PSA, ED) History of Previous Operations: No relevant previous surgery Allergies: Allergies Allergy/AdvReac Type Severity Reaction Status Date / Time No Known Drug Allergies Allergy Unknown NONE Verified 01/18/23 06:17 [NO KNOWN DRUG ALLERGIES] Review of Systems Sugical H&P ROS: Negative: Constitution, Cardiovascular, Respiratory, Neurological, Psychiatric, Hem-Onc, Allergic/Immunologic, Gastrointestinal, Genitourinary, Musculoskeletal, Integumentary, Endocrine and Eyes/Ears/Nose/Throat Exam Surgical H&P Exam: Normal: HEENT, Normal: Heart, Normal: Lungs, Normal: Extremities, Normal: Abdomen, Normal: Skin and Normal: Neurological Plan Diagnosis/Plan: Unchanged I have reviewed the history and physical and performed a pertinent physical examination on my patient. No changes have occurred unless specified. Time Spent With Patient Time: Total time managing care of this patient today ____ minutes.
--- NOTE | 2023-01-18 08:03 | W.PM.OPN ---
Operative Note Operative Note Date of Service: 01/18/23 Narrative: Preop diagnosis: Colon cancer screening Postop diagnosis: Normal colonoscopy findings Procedure: Colonoscopy Surgeon: Timo Kaye MD The patient is a 67-year-old male for screening colonoscopy. He denies any GI complaints. His last colonoscopy was 2011. He understood the technique of the procedure as well as the risks, benefits, and alternatives The patient was brought to the operating room and placed in left lateral decubitus position under monitored anesthesia care. A surgical time-out was done. A full digital rectal exam was done and this did not reveal any significant anal lesions. The tip of the Olympus colonoscope was gently introduced through the anal orifice advanced with insufflation all the way to the cecum. The cecum was intubated. The cecum was identified by visualization of the ileocecal valve as well as the appendiceal orifice. The cecal mucosa was unremarkable. The scope was gradually withdrawn with careful examination of the entire colonic mucosa being done with scope withdrawal. The patient had adequate bowel prep so it was unlikely that any lesion may have been missed. The rectum was reached and there were no lesions seen. The anal canal was unremarkable. The scope was then withdrawn completely with desufflation The patient tolerated the procedure well. There were no immediate complications. His next colonoscopy may be in the next 10 years.
[2023-01-18 08:07] VITALS: BP 100/55; PULSE 55; RESP 14; TEMP 36.6; O2SAT 98
[2023-01-18 08:22] VITALS: BP 108/70; PULSE 68; RESP 16; TEMP 36.6; O2SAT 97
== END 2023-01-18 09:23 | disposition home or self-care (01) ==
PROVIDERS: PCP Internal Medicine; Visit Provider Surgery
PROC: 0DBE8ZZ Excision of Large Intestine, Via Natural or Artificial Opening Endoscopic (ICD-10-PCS; CPT 45378; principal; 2023-01-18 07:30)
DX: Z12.11 Encounter for screening for malignant neoplasm of colon (principal); K21.9 Gastro-esophageal reflux disease without esophagitis; I25.2 Old myocardial infarction; I10 Essential (primary) hypertension; E78.5 Hyperlipidemia, unspecified; G57.10 Meralgia paresthetica, unspecified lower limb; Z79.899 Other long term (current) drug therapy; Z98.890 Other specified postprocedural states
CPT/HCPCS: 45378; J2704

== ENCOUNTER → 2023-01-18 05:56 | Outpatient (BNV) | payer BC, SELFPAY | PROVIDERS: PCP Internal Medicine; Visit Provider Surgery | DX: Z12.11 Encounter for screening for malignant neoplasm of colon (principal) | CPT/HCPCS: 45378 ==

== ENCOUNTER 2023-02-02 09:02 | Outpatient (AMB) | payer BC, SELFPAY ==
--- NOTE | 2023-02-02 09:03 | A.OFFVIS_ITS ---
Intake Vital Signs 02/02/23 09:14 Height 5 ft 5 in Weight 174 lb BMI 29.0 BP 137/66 Blood Pressure Location Rt brachial Position Standing Pulse 66 Intake Visit Reasons: S/p colonoscopy Intake Note: This patient presents for a follow-up assessment status post colonoscopy. Patient c/o; reports no complaints at this time. Mill Operator Required: Yes Mill Operator Language: Maltese Accompanied by: Self / Same As Patient Allergies No Known Drug Allergies [NO KNOWN DRUG ALLERGIES] Allergy (Unknown, Verified 02/02/23 09:15) NONE Medication List - Last Reconciled 02/02/23 by Timo Kaye MD amlodipine 5 mg PO DAILY atorvastatin 40 mg PO BEDTIME metoprolol succinate ER 50 mg PO DAILY tadalafil (Cialis) 5 mg PO DAILY 90 days HPI S/p colonoscopy HPI Details He had undergone colonoscopy for screening last 01/20/2023. He tolerated procedure well and denies significant complaints at this time. [facility] Medical History Encounter for screening colonoscopy Cataract Hx of myocardial infarction History of CAD (coronary artery disease) GERD (gastroesophageal reflux disease) Benign hypertension Hyperlipidemia Meralgia paraesthetica Surgical History History of cataract surgery H/O colonoscopy History of elbow surgery History of surgery on lower extremity Family History Father Prostate cancer Social History Patient Tobacco Use Status: Never used Tobacco Review of Systems Const Denies chills and Denies fever(s) Card Denies chest pain, Denies dyspnea and Denies dyspnea on exertion Resp Denies cough, Denies dyspnea and Denies dyspnea on exertion GI Denies hematochezia and Denies change in bowel habits Denies hematuria and Denies difficulty urinating Musc Denies back pain and Denies limited range of motion Neuro Denies focal weakness and Denies convulsions Psych Denies depression and Denies mood swings Physical Exam Vital Signs: Last Vital Signs Pulse 66 02/02/23 09:14 BP 137/66 02/02/23 09:14 BMI result Body Mass Index 29.0 Const General: comfortable and no acute distress Resp Effort & Inspection: normal respiratory effort Cardio Rate: regular rate GI Palpation (GI): Soft to palpation, not firm and nontender Assessment & Plan Assessment & Plan (1) Encounter for screening colonoscopy: Code(s): Z12.11 - Encounter for screening for malignant neoplasm of colon Plan: Status post colonoscopy. He is doing very well. I explained to him that I did not see any polyps or any lesions. His next colonoscopy may be in the next 10 years as he has of average risk. He can otherwise follow up on a p.r.n. basis. Coding Level of Care Code Est Pt Level 2 (41205) Diagnoses Encounter for screening colonoscopy Z12.11
[2023-02-02 09:14] VITALS: BP 137/66; PULSE 66; BMI 29.0
== END 2023-02-02 09:18 | disposition home or self-care (01) ==
PROVIDERS: PCP Internal Medicine; Visit Provider Surgery
DX: Z12.11 Encounter for screening for malignant neoplasm of colon (principal)
CPT/HCPCS: 99212

== ENCOUNTER → 2023-02-02 09:02 | Outpatient (BNVA) | payer BC, SELFPAY | PROVIDERS: PCP Internal Medicine; Visit Provider Surgery ==

== ENCOUNTER 2023-04-21 10:43 | Outpatient (REF) | payer BC, SELFPAY ==
[2023-04-21 13:56] LABS: PSA,Total (Free>4and<10) 2.75 ng/mL (0.00-4.00)
== END 2023-04-21 10:44 | disposition home or self-care (01) ==
LOC: HO.10HDL 10:43
PROVIDERS: Visit Provider Nurse Practitioner Family
DX: R97.20 Elevated prostate specific antigen [PSA] (principal); Z12.5 Encounter for screening for malignant neoplasm of prostate
CPT/HCPCS: 36415; 84153

== ENCOUNTER 2023-05-03 09:47 | Outpatient (AMB) | payer BC, SELFPAY ==
--- NOTE | 2023-05-03 10:10 | A.OFFVIS_ITS ---
Intake Intake Visit Reasons: 4m/PSA(set) CONFIRMED Intake Note: Patient presents for follow up visit elevated psa/labs PSA: 2.75 Urology Medications: tadalafil Blood Thinner: none Superintendent Required: Yes Superintendent Name: MARINA SINGHPENNYLaura Accompanied by: Self / Same As Patient Allergies No Known Drug Allergies [NO KNOWN DRUG ALLERGIES] Allergy (Unknown, Verified 05/03/23 21:25) NONE Medication List - Last Reconciled 05/03/23 by DUSTIN GutiérrezP- amlodipine 5 mg PO DAILY atorvastatin 40 mg PO BEDTIME finasteride 5 mg PO DAILY 90 days metoprolol succinate ER 50 mg PO DAILY tadalafil (Cialis) 5 mg PO DAILY 90 days HPI HPI Comments History of Present Illness Details Wilver is a very pleasant 67-year-old Moldovan-speaking male patient of Dr. Galvez. He has a past medical history of cataracts, myocardial infarction with stent placement in 2005 in [place], CAD, GERD, hyperlipidemia, and hypertension. He presents to the office today for follow-up of his elevated PSA. Recent PSA results reviewed with the patient today as noted and trended below. 06/16--3.4 09/19--5.2 12/20--4.8 % free PSA 13% 04/23--2.8 Previous workup has included a retroperitoneal ultrasound noting bilateral kidneys with no calculi and or hydronephrosis noted. The bladder is well distended and unremarkable. Prostate volume is approximately 28 mL. In discussion with the patient today he reports compliance with 5 mg of finasteride daily. Discussed decrease in PSA level. He does have a family history of prostate cancer and reports his father had prostate cancer and at the age of 92. He otherwise denies any bothersome urinary issues at this time. He denies urinary urgency, urinary frequency, incontinence, nocturia, hematuria, dysuria, foul smelling urine, changes to urinary stream, flank pain, fever, and or chills. He is happy with his current voiding parameters. Discussed importance of surveillance monitoring of PSA given patient's family history of prostate cancer as well as history of elevated PSA. He would like to continue with finasteride 5 mg daily and surveillance monitoring verses prostate biopsy and or MRI. This was discussed at length. Risks and benefits of these treatment options were discussed. He reports to be doing well with obtaining a maintaining erections on 5 mg of Cialis daily. He otherwise offers no other issues or concerns at this time. [facility] Medical History Encounter for screening colonoscopy Cataract Hx of myocardial infarction History of CAD (coronary artery disease) GERD (gastroesophageal reflux disease) Benign hypertension Hyperlipidemia Meralgia paraesthetica Surgical History History of cataract surgery H/O colonoscopy History of elbow surgery History of surgery on lower extremity Family History Father Prostate cancer Social History Patient Tobacco Use Status: Never used Tobacco Review of Systems Const Reports as per HPI Eyes Reports no additional complaints ENT Reports no additional complaints Card Reports as per HPI Resp Reports no additional complaints GI Reports as per HPI Reports as per HPI Musc Reports no additional complaints Neuro Reports no additional complaints Psych Reports no additional complaints Endo Reports no additional complaints Rios/Lymph Reports no additional complaints Aller/Immun Reports no additional complaints Physical Exam Const General: cooperative, healthy appearing, comfortable, no acute distress, well developed, alert and awake Orientation/consciousness: patient oriented x3 Limitations: no limitations HEENT Head: Yes normal to inspection, Yes normocephalic and Yes atraumatic Ears: hearing grossly normal bilaterally Eyes General: appearance normal, both eyes and all related structures Neck Neck: Yes normal visual inspection and Yes trachea midline Chest Chest palpation & inspection: normal inspection of the chest Resp Effort & Inspection: normal respiratory effort and able to speak in complete sentences Cardio Rate: regular rate GI Inspection: Yes normal to inspection General: Yes no CVA tenderness Back/Spine/Pelvis Back: no CVA tenderness Skin General skin exam: no rashes or lesions noted Neuro General: patient oriented x3 Extrem General: Yes normal to inspection Psych Appearance: grossly normal and well kempt Mental Status: mental status grossly normal Speech and movement: Normal speech and movement present and Clear speech present Affect: normal affect Attitude: cooperative Thought process: Normal thought process present Thought content: Normal thought content present Insight: Good insight present (Psych) Judgement: Good judgement present (Psych) Results AMB Urinalysis, Automated UA Leukoctes 0 Nikunj/uL Last Edit by Kemyce Saravanan on 05/03/23 10:17 UA Nitrite Negative Last Edit by [employer] on 05/03/23 10:17 UA Urobilinogen 0.2 mg/dL Last Edit by [employer]warren Coe on 05/03/23 10:17 UA Protein 0 mg/dL Last Edit by [employer] on 05/03/23 10:17 UA pH 5.5 Last Edit by [employer] on 05/03/23 10:17 UA Blood 0 Juan Diego/uL Last Edit by [employer] on 05/03/23 10:17 UA Specific Monument 1.020 Last Edit by [employer] on 05/03/23 10:17 UA Ketone Negative Last Edit by [employer] on 05/03/23 10:17 UA Bilirubin 0 mg/dL Last Edit by [employer] on 05/03/23 10:17 UA Glucose 0 mg/dL Last Edit by [employer] on 05/03/23 10:17 Results Reviewed Results Reviewed: Laboratory Last Values Urine pH (Auto) 5.5 05/03/23 10:11 Specific Monument (Auto) 1.020 05/03/23 10:11 Urine Protein (Auto) 0 mg/dL 05/03/23 10:11 Glucose (UA)(Auto) 0 mg/dL 05/03/23 10:11 Urine Ketones (Auto) Negative 05/03/23 10:11 Urine Blood (Auto) 0 Juan Diego/uL 05/03/23 10:11 Urine Nitrite (Auto) Negative 05/03/23 10:11 Urine Bilirubin (Auto) 0 mg/dL 05/03/23 10:11 Urine Urobilinogen (Auto) 0.2 mg/dL 05/03/23 10:11 Leukocyte Esterase (Auto) 0 Nikunj/uL 05/03/23 10:11 Assessment & Plan Assessment & Plan (1) Lower urinary tract symptoms: Code(s): R39.9 - Unspecified symptoms and signs involving the genitourinary system (2) Elevated PSA: Code(s): R97.20 - Elevated prostate specific antigen [PSA] Plan In office urinalysis results reviewed with the patient today; as noted above. Recent PSA results reviewed with the patient today; as noted above. Discussed decrease in PSA level; patient would like to continue with 5 mg of finasteride daily as prescribed; refill provided. Discussed importance of serial surveillance monitoring of PSA given family history of prostate cancer. Patient currently denies any bothersome urinary issues or concerns. He reports to be happy with current voiding parameters. Will obtain PSA in 4 months. Follow-up in 4 months with lab to be completed prior; or sooner with any issues, concerns, and or questions. Orders: Orders AMB Urinalysis Automated Today Z13.9 - Encounter for screening, unspecified Prostate Specific Antigen 4 Months R39.9 - Unspecified symptoms and signs involving the genitourinary system, R97.20 - Elevated prostate specific antigen [PSA] Medications: New finasteride 5 mg PO DAILY 90 days 90 tabs 3RF Refilled tadalafil (Cialis) [facility] [id number] [facility] Group DR33 5 mg PO DAILY 90 days 90 tabs 3RF Patient Instructions: The patient had an opportunity to ask questions regarding the treatment plan. All questions were answered. Physical exam, labs, and imaging were discussed and reviewed in detail. As well as risks, benefits, and discussion of treatment choices. No major barriers to understanding were identified. The patient expressed understanding and agreement with the above treatment plan. The patient was made aware they should contact our office by phone for worsening of their current condition, the appearance of new symptoms, or with any questions or concerns. Compliance is encouraged with any medications and follow up testing that is ordered. It is a privilege to be allowed the opportunity to participate in? your urological care.? Again, if you have any questions or concerns If you have any questions or concerns please do not hesitate to contact me. The office is [phone]. This note is constructed using voice recognition software. While every effort has been made to ensure accuracy engineer intern errors may have been included. Yours sincerely, CARLITO Gutiérrez Coding Level of Care Code Est Pt Level 3 (58467) Diagnoses Lower urinary tract symptoms R39.9 Elevated PSA R97.20
== END 2023-05-03 10:57 | disposition home or self-care (01) ==
PROVIDERS: PCP Internal Medicine; Referring Provider Internal Medicine; Visit Provider Nurse Practitioner Family
DX: R39.9 Unspecified symptoms and signs involving the genitourinary system (principal); R97.20 Elevated prostate specific antigen [PSA]
CPT/HCPCS: 99213

== ENCOUNTER → 2023-05-03 09:47 | Outpatient (BNVA) | payer BC, SELFPAY | PROVIDERS: PCP Internal Medicine; Visit Provider Nurse Practitioner Family | DX: R97.20 Elevated prostate specific antigen [PSA] (principal); R39.9 Unspecified symptoms and signs involving the genitourinary system | CPT/HCPCS: 81003 ==

== ENCOUNTER 2023-08-24 08:50 | Outpatient (REF) | payer BC, SELFPAY ==
[2023-08-24 10:57] LABS: Alanine Aminotransferase 35 U/L (0-40); Albumin Level 4.1 g/dL (3.5-5.0); Alkaline Phosphatase 77 U/L (39-117); Anion Gap 11 (12-20); Aspartate Amino Transferase 25 U/L (5-37); Bilirubin Direct 0.3 mg/dL (0.0-0.5); Bilirubin Total 0.7 mg/dL (0.0-1.0); Blood Urea Nitrogen 12 mg/dL (9-16); Calcium 8.8 mg/dL (8.4-10.2); Carbon Dioxide 23 mmol/L (22-29); Chloride 111 mmol/L (96-108); Cholesterol 128 mg/dL (<200); Estimated Glomerular Filt Rate > 60; Glucose Random 99 mg/dL (60-115); HDL Cholesterol 46 mg/dL (>40); LDL Cholesterol Calculated 60 mg/dL (<100); Potassium 3.6 mmol/L (3.3-5.1); Sodium 141 mmol/L (135-145); Total Protein 7.2 g/dL (6.5-8.0); Triglycerides 113 mg/dL (<150)
[2023-08-24 11:16] LABS: Prostate Specific Antigen 4.19 ng/mL (<0.05-4.0)
[2023-08-24 12:41] LABS: Reflex LDLD? No
== END 2023-08-24 08:51 | disposition home or self-care (01) ==
LOC: HO.10HDL 08:50
PROVIDERS: Internal Medicine; Visit Provider Nurse Practitioner Family
DX: R39.9 Unspecified symptoms and signs involving the genitourinary system (principal); R97.20 Elevated prostate specific antigen [PSA]; I10 Essential (primary) hypertension; Z12.5 Encounter for screening for malignant neoplasm of prostate
CPT/HCPCS: 36415; 80048; 80061; 80076; 84153

== ENCOUNTER 2023-11-24 08:38 | Outpatient (AMB) | payer BC, SELFPAY ==
--- NOTE | 2023-11-24 08:51 | A.OFFVIS_ITS ---
Intake Visit Reasons: follow up/PSA Intake Note: Patient presents today for follow up visit on: elevated psa/labs PSA: 4.19 Urology Medications: tadalafil,finasteride Blood Thinner: none Sort Worker Required: Yes Sort Worker Services: Sort Worker Present Sort Worker Name: JAMAL RACHELAMINA Accompanied by: Self / Same As Patient Allergies No Known Drug Allergies [NO KNOWN DRUG ALLERGIES] Allergy (Unknown, Verified 11/24/23 09:29) NONE Medication List - Last Reconciled 11/24/23 by DUSTIN GutiérrezP- amlodipine 5 mg PO DAILY atorvastatin 40 mg PO BEDTIME finasteride 5 mg PO DAILY 90 days metoprolol succinate ER 50 mg PO DAILY tadalafil (Cialis) 5 mg PO DAILY 90 days HPI Comments Details: Wilver is a very pleasant 68-year-old Korean-speaking male patient of Dr. Galvez. He has a past medical history of cataracts, myocardial infarction with stent placement in 2005 in [place], CAD, GERD, hyperlipidemia, and hypertension. He presents to the office today for follow-up of his elevated PSA. Recent PSA results reviewed with the patient today as noted and trended below. 06/16 3.4, 09/19 5.2, 12/20 4.8 % free PSA 13%, 04/23 2.8, 08/21 4.2 Previous workup has included a retroperitoneal ultrasound noting bilateral kidneys with no calculi and or hydronephrosis noted. The bladder is well distended and unremarkable. Prostate volume is approximately 28 mL. In discussion with the patient today he reports he has not been taking his finasteride as he was in [place]. We discussed bump in PSA. Discussed and stressed the importance of taking medications as prescribed. He does have a family history of prostate cancer and reports his father had prostate cancer and at the age of 92. He otherwise denies any bothersome urinary issues at this time. He denies urinary urgency, urinary frequency, incontinence, nocturia, hematuria, dysuria, foul smelling urine, changes to urinary stream, flank pain, fever, and or chills. He is happy with his current voiding parameters. Discussed importance of surveillance monitoring of PSA given patient's family history of prostate cancer as well as history of elevated PSA. He would like to continue with finasteride 5 mg daily and surveillance monitoring verses prostate biopsy and or MRI. This was discussed at length. Risks and benefits of these treatment options were discussed. He reports to be doing well with obtaining a maintaining erections on 5 mg of Cialis daily. He otherwise offers no other issues or concerns at this time. [facility] Medical History Encounter for screening colonoscopy Cataract Hx of myocardial infarction History of CAD (coronary artery disease) GERD (gastroesophageal reflux disease) Benign hypertension Hyperlipidemia Meralgia paraesthetica Surgical History History of cataract surgery H/O colonoscopy History of elbow surgery History of surgery on lower extremity Family History Father Prostate cancer Social History Patient Tobacco Use Status: Never used Tobacco Review of Systems Const Reports as per HPI Eyes Reports no additional complaints ENT Reports no additional complaints Card Reports as per HPI Resp Reports no additional complaints GI Reports as per HPI Reports as per HPI Musc Reports no additional complaints Neuro Reports no additional complaints Psych Reports no additional complaints Endo Reports no additional complaints Rios/Lymph Reports no additional complaints Aller/Immun Reports no additional complaints Physical Exam Const General: cooperative, healthy appearing, comfortable, no acute distress, well developed, alert and awake Orientation/consciousness: patient oriented x3 Limitations: no limitations HEENT Head: Yes normal to inspection, Yes normocephalic and Yes atraumatic Ears: hearing grossly normal bilaterally Eyes General: appearance normal, both eyes and all related structures Neck Neck: Yes normal visual inspection and Yes trachea midline Chest Chest palpation & inspection: normal inspection of the chest Resp Effort & Inspection: normal respiratory effort and able to speak in complete sentences Cardio Rate: regular rate GI Inspection: Yes normal to inspection General: Yes no CVA tenderness Back/Spine/Pelvis Back: no CVA tenderness Skin General skin exam: no rashes or lesions noted Neuro General: patient oriented x3 Extrem General: Yes normal to inspection Psych Appearance: grossly normal and well kempt Mental Status: mental status grossly normal Speech and movement: Normal speech and movement present and Clear speech present Affect: normal affect Attitude: cooperative Thought process: Normal thought process present Thought content: Normal thought content present Insight: Fair insight present (Psych) Judgement: Fair judgement present (Psych) Assessment & Plan Assessment & Plan (1) Lower urinary tract symptoms: Code(s): R39.9 - Unspecified symptoms and signs involving the genitourinary system Category: Medical (2) Elevated PSA: Code(s): R97.20 - Elevated prostate specific antigen [PSA] Category: Medical Plan In office urinalysis results reviewed with the patient today; as noted above. Recent PSA results reviewed with the patient today; as noted above; discussed bump in PSA however patient reports noncompliance with finasteride as he was in [place] and did not have the medication. Discussed importance of serial surveillance monitoring of PSA given family history of prostate cancer. Discussed re-initiation of finasteride versus MRI of the prostate versus prostate biopsy; risks and benefits of these interventions were discussed Continue finasteride and Cialis as prescribed; refill provided Patient currently denies any bothersome urinary issues or concerns. He reports to be happy with current voiding parameters. Will obtain PSA in 2 months; no sex the night before, no caffeine morning of, no heavy lifting 1-2 days prior. Follow-up in 2-3 months with lab to be completed prior; or sooner with any issues, concerns, and or questions. Orders: Orders AMB Urinalysis Automated Today Z13.9 - Encounter for screening, unspecified PSA,Total (Free>4and<10) 2 Months R97.20 - Elevated prostate specific antigen [PSA] Medications: Refilled tadalafil (Cialis) BIN [id number] [facility] Group DR33 5 mg PO DAILY 90 days 90 tabs 3RF finasteride 5 mg PO DAILY 90 days 90 tabs 3RF Patient Instructions: The patient had an opportunity to ask questions regarding the treatment plan. All questions were answered. Physical exam, labs, and imaging were discussed and reviewed in detail. As well as risks, benefits, and discussion of treatment choices. No major barriers to understanding were identified. The patient expressed understanding and agreement with the above treatment plan. The patient was made aware they should contact our office by phone for worsening of their current condition, the appearance of new symptoms, or with any questions or concerns. Compliance is encouraged with any medications and follow up testing that is ordered. It is a privilege to be allowed the opportunity to participate in? your urological care.? Again, if you have any questions or concerns If you have any questions or concerns please do not hesitate to contact me. The office is [phone]. This note is constructed using voice recognition software. While every effort has been made to ensure accuracy dye winch operator errors may have been included. Yours sincerely, CARLITO Gutiérrez Coding Level of Care Code Est Pt Level 3 (75908) Complex EM visit Add On G2211 Diagnoses Lower urinary tract symptoms R39.9 Elevated PSA R97.20
== END 2023-11-24 09:37 | disposition home or self-care (01) ==
LOC: HO.HUSH 08:38
PROVIDERS: PCP Internal Medicine; Visit Provider Nurse Practitioner Family
DX: R39.9 Unspecified symptoms and signs involving the genitourinary system (principal); R97.20 Elevated prostate specific antigen [PSA]
CPT/HCPCS: 99213

== ENCOUNTER → 2023-11-24 08:38 | Outpatient (BNVA) | payer BC, SELFPAY | PROVIDERS: PCP Internal Medicine; Visit Provider Nurse Practitioner Family ==

== ENCOUNTER 2024-02-07 09:18 | Outpatient (REF) | payer BC, SELFPAY ==
[2024-02-09 12:29] LABS: Free Prostate Spec Ag 0.6 ng/mL; Percent Free Prostate Spec Ag 15 % (calc) (>25); Prostate Specific Ag Total 3.9 ng/mL (< OR = 4.0)
== END 2024-02-07 09:19 | disposition home or self-care (01) ==
LOC: HO.10HDL 09:18
PROVIDERS: Visit Provider Nurse Practitioner Family
DX: Z12.5 Encounter for screening for malignant neoplasm of prostate (principal); R97.20 Elevated prostate specific antigen [PSA]
CPT/HCPCS: 36415; 84153; 84154

== ENCOUNTER 2024-02-20 08:46 | Outpatient (AMB) | payer BC, SELFPAY ==
--- NOTE | 2024-02-20 08:48 | A.OFFVIS_ITS ---
Intake Visit Reasons: 3m/PSA(set) Intake Note: Patient is present for 3M/PSA Urology Medication:FINASTERIDE,TADALAFIL Antibiotic Allergy:NONE Blood Thinner:NONE TODAY'S PVR: 0ML'S Mason Tender Required: No Mason Tender Name: JAMAL RACHELAMINA Allergies No Known Drug Allergies [NO KNOWN DRUG ALLERGIES] Allergy (Unknown, Verified 02/20/24 09:22) NONE Medication List - Last Reconciled 02/20/24 by MAKAYLA Gutiérrez- amlodipine 5 mg PO DAILY atorvastatin 40 mg PO BEDTIME finasteride 5 mg PO DAILY 90 days metoprolol succinate ER 50 mg PO DAILY tadalafil (Cialis) 5 mg PO DAILY 90 days HPI Comments Details: Wilver is a very pleasant 68-year-old Danish-speaking male patient of Dr. Galvez. He has a past medical history of cataracts, myocardial infarction with stent placement in 2005 in [place], CAD, GERD, hyperlipidemia, and hypertension. He presents to the office today for follow-up of his elevated PSA. Recent PSA results reviewed with the patient today as noted and trended below. 06/16 3.4, 09/19 5.2, 12/20 4.8 % free PSA 13%, 04/23 2.8, 08/21 4.2, 02/20 4.3 % free PSA 15. Previous workup has included a retroperitoneal ultrasound noting bilateral kidneys with no calculi and or hydronephrosis noted. The bladder is well distended and unremarkable. Prostate volume is approximately 28 mL. In discussion with the patient today he reports compliance with Finasteride as prescribed. He reports previously being noncompliant with finasteride as he was in [place] however over the last 3-4 months has been taking it daily as prescribed. We discussed bump in PSA and further intervention to include MRI of the prostate verses prostate biopsy. He does have a family history of prostate cancer and reports his father had prostate cancer and at the age of 92/. He otherwise denies any bothersome urinary issues at this time. He denies urinary urgency, urinary frequency, incontinence, nocturia, hematuria, dysuria, foul smelling urine, changes to urinary stream, flank pain, fever, and or chills. He is happy with his current voiding parameters. He would like to continue with finasteride 5 mg daily and surveillance monitoring verses prostate biopsy and or MRI. This was discussed at length. Risks and benefits of these treatment options were discussed. We discussed possible delay in treatment. He reports to be doing well with obtaining a maintaining erections on 5 mg of Cialis daily. He otherwise offers no other issues or concerns at this time. [facility] Medical History Encounter for screening colonoscopy Cataract Hx of myocardial infarction History of CAD (coronary artery disease) GERD (gastroesophageal reflux disease) Benign hypertension Hyperlipidemia Meralgia paraesthetica Surgical History History of cataract surgery H/O colonoscopy History of elbow surgery History of surgery on lower extremity Family History Father Prostate cancer Social History Patient Tobacco Use Status: Never used Tobacco Review of Systems Const Reports as per HPI Eyes Reports no additional complaints ENT Reports no additional complaints Card Reports as per HPI Resp Reports no additional complaints GI Reports as per HPI Reports as per HPI Musc Reports no additional complaints Neuro Reports no additional complaints Psych Reports no additional complaints Endo Reports no additional complaints Riso/Lymph Reports no additional complaints Aller/Immun Reports no additional complaints Physical Exam Const General: cooperative, healthy appearing, comfortable, no acute distress, well developed, alert and awake Orientation/consciousness: patient oriented x3 Limitations: no limitations HEENT Head: Yes normal to inspection, Yes normocephalic and Yes atraumatic Ears: hearing grossly normal bilaterally Eyes General: appearance normal, both eyes and all related structures Neck Neck: Yes normal visual inspection and Yes trachea midline Chest Chest palpation & inspection: normal inspection of the chest Resp Effort & Inspection: normal respiratory effort and able to speak in complete sen tences Cardio Rate: regular rate GI Inspection: Yes normal to inspection General: Yes no CVA tenderness Back/Spine/Pelvis Back: no CVA tenderness Skin General skin exam: no rashes or lesions noted Neuro General: patient oriented x3 Extrem General: Yes normal to inspection Psych Appearance: grossly normal and well kempt Mental Status: mental status grossly normal Speech and movement: Normal speech and movement present and Clear speech present Affect: normal affect Attitude: cooperative Thought process: Normal thought process present Thought content: Normal thought content present Insight: Fair insight present (Psych) Judgement: Fair judgement present (Psych) Office Procedures Post Void Residual Post Residual Void Post Void Residual (PVR): 0 [id number] Void Residual by ultrasound Assessment & Plan Assessment & Plan (1) Elevated PSA: Code(s): R97.20 - Elevated prostate specific antigen [PSA] Category: Medical (2) Erectile dysfunction: Code(s): N52.9 - Male erectile dysfunction, unspecified Category: Medical (3) Family history of prostate cancer: Code(s): Z80.42 - Family history of malignant neoplasm of prostate Category: Medical Plan In office urinalysis results reviewed with the patient today; as noted above. Recent PSA results reviewed with the patient today; as noted above; discussed bump in PSA. We discussed further treatment options to include prostate biopsy verses MRI of the prostate. Patient discusses he does not wish to undergo further workup at this time and would like to continue with daily finasteride in surveillance monitoring of PSAs. We discussed potential for delay in treatment in consequences regarding possible delay. Continue finasteride and Cialis as prescribed; refill provided Patient currently denies any bothersome urinary issues or concerns. He reports to be happy with current voiding parameters. Will obtain PSA in 4 months. Follow-up in 3-4 months with lab to be completed prior; or sooner with any issues, concerns, and or questions. Orders: Orders AMB Urinalysis Automated Today Z13.9 - Encounter for screening, unspecified PSA,Total (Free>4and<10) 3 Months R97.20 - Elevated prostate specific antigen [PSA], Z80.42 - Family history of malignant neoplasm of prostate Medications: Refilled finasteride 5 mg PO DAILY 90 days 90 tabs 3RF Patient Instructions: The patient had an opportunity to ask questions regarding the treatment plan. All questions were answered. Physical exam, labs, and imaging were discussed and reviewed in detail. As well as risks, benefits, and discussion of treatment choices. No major barriers to understanding were identified. The patient expressed understanding and agreement with the above treatment plan. The patient was made aware they should contact our office by phone for worsening of their current condition, the appearance of new symptoms, or with any questions or concerns. Compliance is encouraged with any medications and follow up testing that is ordered. It is a privilege to be allowed the opportunity to participate in? your urological care.? Again, if you have any questions or concerns If you have any questions or concerns please do not hesitate to contact me. The office is [phone]. This note is constructed using voice recognition software. While every effort has been made to ensure accuracy surfacing technician errors may have been included. Yours sincerely, MAKAYLA Gutiérrez-SILVIA Coding Level of Care Code Est Pt Level 3 (13955) Complex EM visit Add On G2211 Diagnoses Elevated PSA R97.20 Erectile dysfunction N52.9 Family history of prostate cancer Z80.42 CPT Codes Post Residual Void - PVR CPT Code: 41418-Mayf Void Residual by ultrasound ([id number])
== END 2024-02-20 09:24 | disposition home or self-care (01) ==
PROVIDERS: PCP Internal Medicine; Visit Provider Nurse Practitioner Family
DX: R97.20 Elevated prostate specific antigen [PSA] (principal); N52.9 Male erectile dysfunction, unspecified; Z80.42 Family history of malignant neoplasm of prostate
CPT/HCPCS: 99213

== ENCOUNTER → 2024-02-20 08:46 | Outpatient (BNVA) | payer BC, SELFPAY | PROVIDERS: PCP Internal Medicine; Visit Provider Nurse Practitioner Family | DX: R97.20 Elevated prostate specific antigen [PSA] (principal); N52.9 Male erectile dysfunction, unspecified; Z80.42 Family history of malignant neoplasm of prostate | CPT/HCPCS: 51798 ==

== ENCOUNTER 2024-07-11 09:56 | Outpatient (REF) | payer BC, SELFPAY ==
[2024-07-11 11:45] LABS: Alanine Aminotransferase 46 U/L (0-40); Albumin Level 4.2 g/dL (3.5-5.0); Alkaline Phosphatase 81 U/L (39-117); Anion Gap 11 (12-20); Aspartate Amino Transferase 33 U/L (5-37); Bilirubin Total 0.9 mg/dL (0.0-1.0); Blood Urea Nitrogen 13 mg/dL (9-16); Calcium 8.8 mg/dL (8.4-10.2); Carbon Dioxide 24 mmol/L (22-29); Chloride 110 mmol/L (96-108); Cholesterol 156 mg/dL (<200); Estimated Glomerular Filt Rate > 60; Glucose Random 103 mg/dL (60-115); HDL Cholesterol 46 mg/dL (>40); LDL Cholesterol Calculated 93 mg/dL (<100); Potassium 4.3 mmol/L (3.3-5.1); Sodium 141 mmol/L (135-145); Total Protein 7.4 g/dL (6.5-8.0); Triglycerides 88 mg/dL (<150)
[2024-07-12 10:59] LABS: Free Prostate Spec Ag 0.7 ng/mL; Percent Free Prostate Spec Ag 12 % (calc) (>25)
== END 2024-07-11 09:57 | disposition home or self-care (01) ==
LOC: HO.10HDL 09:56
PROVIDERS: Internal Medicine; Visit Provider Nurse Practitioner Family
DX: E78.2 Mixed hyperlipidemia (principal); I10 Essential (primary) hypertension; Z12.5 Encounter for screening for malignant neoplasm of prostate; Z80.42 Family history of malignant neoplasm of prostate; R97.20 Elevated prostate specific antigen [PSA]
CPT/HCPCS: 36415; 80053; 80061; 84153; 84154

== ENCOUNTER 2024-07-20 15:08 | Outpatient (AMB) | payer BC, SELFPAY ==
--- OUTSIDE RECORDS SUMMARY | 2024-07-20 15:10 | XMS_ITS | Encounter Summary ---
Author Organization [employer] Address [address] [place] [address] [address] [place] [address] Care Team Providers Care Operations Support Coordinator Name Role Phone Artie Portillo MD Primary Care Provide r Encounter Details Date Type Department Care Team (Late st Contact Info) Description 05/07/2022 Orders Only [facility] [address] [place] [address] Avril Alvarez LPN Social History Tobacco Use Types Packs/Day Years Used Date Smoking Tobacco: Never Assessed Sex and Gender Information Value Date Recorded Sex Assigned at Male 12/28/2021 10:21 AM EDT Legal Sex Male 10:21 AM EDT Gender Identity Male 12/28/2021 10:21 AM EDT Sexual Orientation Straight 12/28/2021 10 :21 AM EDT documented as of this encounter Plan of Treatment Not on file documented as of this encounter Visit Diagnoses Not on filedocumented in this encounter Care Teams Operations Support Coordinator Relationship Specialty Start Date End Date Artie Portillo MD [address] [place] [id number] PCP - General Internal Medicine 01/07/14 documented as of this encounter
--- NOTE | 2024-07-20 15:27 | MHC.OFFVIS ---
Intake Visit Reasons: 4m/PSA Intake Note: Patient is present for 4M/PSA Urology Medication:NONE Antibiotic Allergy:NONE Blood Thinner:NONE Tile Setter Apprentice Required: No Allergies No Known Drug Allergies (NO KNOWN DRUG ALLERGIES) Allergy (Unknown, Verified 07/20/24 15:28) NONE HPI Comments Details: Wilver is a pleasant Serbian-speaking male. He is a patient of Dr. Willams. He is seen for the following urologic conditions - fluctuating PSA PSA continued to rise through finasteride Translation provided by his daughter who was in the medical field Upon discussion decision made to take dutasteride Four month follow-up check PSA Prostate biopsy discussed in detail Elevated PSA Imaging - retroperitoneal ultrasound showing bilateral kidneys no calculi, well distended bladder, prostate volume 30 cc Has been on finasteride Family history positive prostate cancer Has been on treatment 5 mg finasteride 06/16 3.4, 09/19 5.2, 12/20 4.8 % free PSA 13%, 04/23 2.8, 08/21 4.2, 02/20 4.3 % free PSA 15, 07/22 6.0 12% Erectile dysfunction Daily [facility] Medical History Encounter for screening colonoscopy Cataract Hx of myocardial infarction History of CAD (coronary artery disease) GERD (gastroesophageal reflux disease) Benign hypertension Hyperlipidemia Meralgia paraesthetica Surgical History History of cataract surgery H/O colonoscopy History of elbow surgery History of surgery on lower extremity Family History Father Prostate cancer Social History Patient Tobacco Use Status: Never used Tobacco Review of Systems Const Denies chills and Denies fever(s) Card Reports no additional complaints and Denies syncope Resp Denies cough GI Denies abdominal pain and Denies heartburn Reports as per HPI and Denies change in libido Neuro Denies syncope Psych Denies change in libido Endo Denies change in libido Physical Exam Const General: cooperative, healthy appearing, comfortable and no acute distress Orientation/consciousness: patient oriented x3 HEENT Face and sinus: Yes normal facial exam Mouth: moist mucous membranes Neck Neck: Yes normal visual inspection, Yes full ROM and Yes trachea midline Chest Chest palpation & inspection: normal inspection of the chest Resp Effort & Inspection: normal respiratory effort, able to speak in complete sentences and no respiratory distress GI Inspection: Yes normal to inspection Back/Spine/Pelvis Cervical Spine: normal cervical lordosis Thoracic/Lumbar Spine: thoracic and lumbar spine normal to inspection Skin General skin exam: no rashes or lesions noted Neuro General: patient oriented x3, gait normal, tone normal and moves all extremities Extrem General: Yes normal to inspection and Yes capillary refill normal Assessment & Plan Assessment & Plan (1) Lower urinary tract symptoms: Code(s): R39.9 - Unspecified symptoms and signs involving the genitourinary system Category: Medical (2) Erectile dysfunction: Code(s): N52.9 - Male erectile dysfunction, unspecified Category: Medical (3) Elevated PSA: Code(s): R97.20 - Elevated prostate specific antigen [PSA] Category: Medical Plan Start dutasteride Four-month follow-up repeat PSA Medications: New dutasteride 0.5 mg PO DAILY 90 caps 1RF 90 days R39.9 - Unspecified symptoms and signs involving the genitourinary system, N40.1 - Benign prostatic hyperplasia with lower urinary tract symptoms, N13.8 - Other obstructive and reflux uropathy Patient Instructions: This note is constructed using voice recognition software. While every effort has been made to ensure accuracy supervisor small appliance assembly errors may have been included. Imaging studies, laboratory and physical exam results were discussed and reviewed in detail. No major barriers to patient understanding were identified. An opportunity to ask questions regarding the treatment plan was provided. All questions were answered. The patient expressed understanding and agreement with the above treatment plan. The patient is aware they should contact our office by phone for worsening of their current condition or the appearance of new urologic symptoms. Compliance is encouraged with any medications and followup testing that is ordered. It is a privilege to participate in the urologic care of your patient. If you have any questions or concerns regarding treatment for the above conditions, or other urologic issues, please do not hesitate to contact me. The office telephone contact is [phone]. Sincerely, Dr Raymundo Viveros MD, [facility] - Urology Compassionate Specialist Care for the Genitourinary System Coding Level of Care Code Est Pt Level 4 (18766) Diagnoses Lower urinary tract symptoms R39.9 Erectile dysfunction N52.9 Elevated PSA R97.20
== END 2024-07-20 15:57 | disposition home or self-care (01) ==
LOC: HO.HUSH 15:08
PROVIDERS: PCP Internal Medicine; Visit Provider Urology
DX: R39.9 Unspecified symptoms and signs involving the genitourinary system (principal); N52.9 Male erectile dysfunction, unspecified; R97.20 Elevated prostate specific antigen [PSA]
CPT/HCPCS: 99214

== ENCOUNTER → 2024-07-20 15:08 | Outpatient (BNVA) | payer BC, SELFPAY | PROVIDERS: PCP Internal Medicine; Visit Provider Urology ==

== ENCOUNTER 2024-09-30 10:27 | Emergency (ER) | payer BC, SELFPAY ==
--- NOTE | ~2024-09-30 | US_ITS ---
CLINICAL HISTORY: RUQ pain, tenderness US abdomen limited Comparison: None provided Findings: The common duct is 3 mm in diameter. The gallbladder is normal. There is no sonographic Thapa sign. The main portal vein is antegrade. Impression: Normal gallbladder. This document has been electronically signed by: Austin Farmer MD on 09/30/2024 12:07:06
--- NOTE | ~2024-09-30 | XR_ITS ---
CLINICAL HISTORY: right sided pain Single view of the chest. COMPARISON: None provided. FINDINGS: Normal heart and mediastinal contours. No consolidation. No pleural effusion or pneumothorax. Flowing marginal osteophytes present throughout the mid to lower thoracic spine. No acute fracture. IMPRESSION: 1. No consolidation. This document has been electronically signed by: Duncan Roberts MD on 09/30/2024 15:07:50
[2024-09-30 10:30] VITALS: BP 135/83; PULSE 62; RESP 18; TEMP 36.6; O2SAT 98; BMI 27.5
--- NOTE | 2024-09-30 11:07 | ED.GENADULT ---
HPI - General Adult General Chief complaint: Abdominal Pain Stated complaint: Right Abd Pain Time Seen by Provider: 09/30/24 11:07 History of Present Illness ED Provider: Diamond PHAM narrative: The patient is a 68-year-old male who developed right upper quadrant abdominal pain about an hour prior to arrival. The pain was quite intense and was associated with nausea but no vomiting. The pain did not radiate to his back. The pain has subsequently subsided significantly without intervention. His family brought him to the emergency room. No fever, sweats, chills. The patient says that the pain this morning was not the result of eating. He had not eaten anything this morning when the pain began. He says he had a lot of popcorn last night which is unusual for him. The pain was associated with nausea. It was not associated with any sense of shortness of breath. He does not feel any pain in his chest. The patient has a history of having had a kidney stone several years ago. He remembers at that time that he felt a pain in the back. Today he has no back or flank pain. This does not feel like his kidney stone pain. Related Data Home Medications ?Medication ?Instructions ?Recorded ?Confirmed amlodipine 5 mg tablet 5 mg PO DAILY 06/02/22 02/02/23 atorvastatin 40 mg tablet 40 mg PO BEDTIME 06/02/22 02/02/23 metoprolol succinate 50 mg 50 mg PO DAILY 06/02/22 02/02/23 tablet,extended release 24 hr Previous Rx's ?Medication ?Instructions ?Recorded dutasteride 0.5 mg capsule 0.5 mg PO DAILY 90 days #90 caps 07/20/24 Allergies Allergy/AdvReac Type Severity Reaction Status Date / Time No Known Drug Allergies (NO Allergy Unknown NONE Verified 09/30/24 10:33 KNOWN DRUG ALLERGIES) Review of Systems Review of Systems: Yes all other systems are reviewed and are negative [facility] Past Medical History Medical History Encounter for screening colonoscopy Cataract Hx of myocardial infarction History of CAD (coronary artery disease) GERD (gastroesophageal reflux disease) Benign hypertension Hyperlipidemia Meralgia paraesthetica Surgical History History of cataract surgery H/O colonoscopy History of elbow surgery History of surgery on lower extremity Family History Family History Father Prostate cancer Social History Social History Patient Tobacco Use Status: Never used Tobacco Physical Exam ED Vital Signs: Vital Signs - 24 hr 09/30/24 10:30 09/30/24 14:43 09/30/24 15:44 Temperature 98 F 97.2 F 97.2 F Pulse Rate 62 59 59 Respiratory Rate 18 14 14 Blood Pressure 135/83 135/72 135/72 Pulse Oximetry 98 96 96 Oxygen Delivery Method Room Air Room Air Room Air BMI result Body Mass Index 27.5 Const Other: The patient is a Turkish-speaking man who is interviewed with a logistics service representative. He was awake, alert, pleasant, cooperative. He is a vigorous looking 68-year-old. He did not seem in acute distress. Orientation/consciousness: patient oriented x3 HENMT Other: The face is symmetrical. Mucous membranes moist. Eyes Other: Pupils are round equal, conjunctivae are clear, extraocular movements intact Neck Neck: Yes normal visual inspection and Yes full ROM Resp Effort & Inspection: normal respiratory effort Auscultation: clear to auscultation bilaterally Cardio Rate: regular rate Rhythm: regular rhythm Heart sounds: S1 normal heart sound present and S2 normal heart sound present GI Other: On my initial exam I thought there was some mild right upper quadrant tenderness. Later he had no tenderness whatsoever. Back/Spine/Pelvis Other: No CVA percussion tenderness on the flanks Skin Other: The skin is dry and unremarkable Neuro General: patient oriented x3, gait normal, tone normal, moves all extremities, no focal motor deficits and CN's II-XI intact bilaterally Extrem Other: There is no calf swelling or tenderness. No asymmetry. No peripheral edema. Medications Administered Discontinued Medications Generic Name Dose Route Start Last Admin Trade Name Freq PRN Reason Stop Dose Admin Sodium Chloride 1,000 mls @ 999 mls/hr 09/30/24 11:15 09/30/24 12:51 Ns IV 09/30/24 12:15 Infused .Q1H1M GEORGE Infusion Medical Decision Making Medical Decision Making MDM Narrative: The patient is a very pleasant 68-year-old male. He has a history of hypertension. He comes to the emergency room having experienced abrupt onset of right upper quadrant abdominal pain this morning. This does not come in response to a meal. The pain was associated with nausea. There was no associated shortness of breath. The patient has a history of having had a kidney stone several years ago. He remembers having the pain in the back at that time. He does not feel today is pain in the back. Overall the pain resolved spontaneously and did not return. The overall duration of pain was about 2 hours he estimates. My initial assumption was that this was likely going to be an episode of biliary colic or similar gallstone related problem. Therefore an ultrasound of the right upper quadrant was obtained. I was surprised that this was negative. I re-evaluated the patient after the negative ultrasound. He was feeling entirely well and looks entirely well and had an entirely benign abdomen. His vital signs have remained normal throughout. His EKG is unremarkable. He has 2 normal troponins. He has a normal chest x-ray. He was in the emergency room for several hours without any ongoing symptoms at all with normal vital signs. Perhaps this was some kind of an episode of gastritis or other benign self-limiting gastrointestinal in disposition. I do not have a high suspicion for any other dangerous process. I doubt this is an acute vascular issue such as an aortic dissection. I do not see an indication for additional imaging today. Patient will be discharged with recommendations to return if he is significantly worse and otherwise to follow up with regular doctor. Lab Data 09/30/24 11:49 09/30/24 11:49 Labs: Lab Results 09/30/24 09/30/24 Range/Units 11:49 14:35 WBC 9.1 (4.8-10.8) X10*3/uL RBC 4.40 L (4.60-5.80) X10*6/uL Hgb 14.6 (14.0-18.0) g/dl Hct 40.1 L (42.0-52.0) % MCV 91.1 (80.0-98.0) fL MCH 33.2 H (27.0-33.0) pg MCHC 36.4 H (31.0-36.0) g/dl RDW 11.7 (11.0-16.0) % Plt Count 228 (160-400) X10*3/uL MPV 9.9 (9.4-12.4) fL Immature Gran % (Auto) 0.2 (0.0-0.4) % Neut % (Auto) 83.3 H (45-73) % Lymph % (Auto) 10.0 L (20-40) % Potter % (Auto) 6.1 (2-11) % Eos % (Auto) 0.2 (0-4) % Baso % (Auto) 0.2 (0-2) % Lymph # (Auto) 0.9 L (1.2-4.9) X10*3/uL Potter # (Auto) 0.6 (0.1-1.2) X10*3/uL Eos # (Auto) 0.0 (0.0-0.4) X10*3/uL Baso # (Auto) 0.0 (0.0-0.2) X10*3/uL Abs Immat Gran (auto) 0.02 (0.00-0.03) X10*3/uL Absolute Neuts (auto) 7.6 (2.0-8.3) x10*3/uL Absolute Nucleated RBC 0.000 (0.0-0.012) X10*3/uL Nucleated RBC % (auto) 0.0 (0.0-0.2) /100WBC Sodium 140 (135-145) mmol/L Potassium 4.6 (3.3-5.1) mmol/L Chloride 109 H (96-108) mmol/L Carbon Dioxide 23 (22-29) mmol/L Anion Gap 13 (12-20) BUN 11 (9-16) mg/dL Creatinine 0.86 (0.5-1.4) mg/dL Estim Creat Clear Calc 75.5 Estimated GFR > 60 Random Glucose 116 H (60-115) mg/dL Calcium 8.7 (8.4-10.2) mg/dL Magnesium 1.9 (1.6-2.6) mg/dL Total Bilirubin 0.7 (0.0-1.0) mg/dL Direct Bilirubin 0.2 (0.0-0.5) mg/dL AST 33 (5-37) U/L ALT 45 H (0-40) U/L Alkaline Phosphatase 82 (39-117) U/L Troponin I High Sens 3.1 3.5 (<3.5-35.0) ng/L C-Reactive Protein < 0.10 (< or = 0.50) mg/dL Total Protein 7.1 (6.5-8.0) g/dL Albumin 4.2 (3.5-5.0) g/dL Lipase 27 (8-78) U/L Discharge Plan Discharge Clinical Impression: Abdominal pain Patient Disposition: Home, Self-Care Additional Instructions: Your testing in the emergency room today seems quite reassuring. I think you may eat a regular diet when you get home that. Do not eat too much. Please continue your regular medications. Please plan on following up with your regular doctor at your next appointment. You may discuss this episode then. If you have another significant similar episode please return to the emergency room for additional evaluation. Prescriptions: No Action atorvastatin 40 mg tablet 40 mg PO BEDTIME metoprolol succinate 50 mg tablet extended release 24 hr 50 mg PO DAILY amlodipine 5 mg tablet 5 mg PO DAILY dutasteride 0.5 mg capsule 0.5 mg PO DAILY 90 Days Qty: 90 1RF Referrals: Artie Galvez MD [Primary Care Provider, Medical] Interventions: ED Discharge Assessment Last Done: 09/30/24 15:44 Discharge Date/Time: 09/30/24 15:45 Print Language: Turkish
--- NOTE | 2024-09-30 11:12 | ECG_ITS ---
Test Reason : ABDO Blood Pressure : */* mmHG Vent. Rate : 58 BPM Atrial Rate : 58 BPM P-R Int : 166 ms QRS Dur : 126 ms QT Int : 462 ms P-R-T Axes : 57 70 36 degrees QTcB Int : 453 ms Sinus bradycardia Right bundle branch block Abnormal ECG When compared with ECG of 27-Mar-2015 17:46, Right bundle branch block is now Present Referred By: Landon Fields Electronically Signed By: REGAN CHAMORRO
[2024-09-30 11:57] LABS: MANUAL DIFF FLAG NO
[2024-09-30 11:58] LABS: Hematocrit 40.1 % (42.0-52.0); Hemoglobin 14.6 g/dl (14.0-18.0); Imm Gran Abs Auto 0.02 X10*3/uL (0.00-0.03); Imm Gran Pct Auto 0.2 % (0.0-0.4); Lymphocytes Absolute Auto 0.9 X10*3/uL (1.2-4.9); Mean Corpuscular HGB Conc 36.4 g/dl (31.0-36.0); Mean Corpuscular Hemoglobin 33.2 pg (27.0-33.0); Mean Corpuscular Volume 91.1 fL (80.0-98.0); NRBC Abs Auto 0.000 X10*3/uL (0.0-0.012); NRBC Pct Auto 0.0 /100WBC (0.0-0.2); Platelet Count 228 X10*3/uL (160-400); Red Blood Count 4.40 X10*6/uL (4.60-5.80); White Blood Count 9.1 X10*3/uL (4.8-10.8)
[2024-09-30 12:13] LABS: Alanine Aminotransferase 45 U/L (0-40); Albumin Level 4.2 g/dL (3.5-5.0); Alkaline Phosphatase 82 U/L (39-117); Anion Gap 13 (12-20); Aspartate Amino Transferase 33 U/L (5-37); Blood Urea Nitrogen 11 mg/dL (9-16); Calcium 8.7 mg/dL (8.4-10.2); Carbon Dioxide 23 mmol/L (22-29); Chloride 109 mmol/L (96-108); Creatinine Clr Calc Pharmacy 75.5; Estimated Glomerular Filt Rate > 60; Lipase 27 U/L (8-78); Magnesium 1.9 mg/dL (1.6-2.6); Potassium 4.6 mmol/L (3.3-5.1); Sodium 140 mmol/L (135-145); Total Protein 7.1 g/dL (6.5-8.0)
[2024-09-30 13:41] LABS: Troponin-I High Sensitivity 3.1 ng/L (<3.5-35.0)
[2024-09-30 14:43] VITALS: BP 135/72; PULSE 59; RESP 14; TEMP 36.2; O2SAT 96
[2024-09-30 15:07] LABS: Troponin-I High Sensitivity 3.5 ng/L (<3.5-35.0)
[2024-09-30 15:44] VITALS: BP 135/72; PULSE 59; RESP 14; TEMP 36.2; O2SAT 96
== END 2024-09-30 15:45 | disposition home or self-care (01) ==
PROVIDERS: Emergency Provider Emergency Medicine; PCP Internal Medicine
DX: R10.11 Right upper quadrant pain (principal); R11.0 Nausea
CPT/HCPCS: 36415; 71046; 76705; 80048; 80076; 83690; 83735; 84484; 85025; 86140; 93005; 96360; 99284; 99285

== ENCOUNTER → 2024-09-30 11:12 | Outpatient (BNV) | payer BC, MEDICARE, SELFPAY | PROVIDERS: Emergency Provider Emergency Medicine; PCP Internal Medicine; Visit Provider Internal Medicine | DX: R00.1 Bradycardia, unspecified (principal); I45.10 Unspecified right bundle-branch block | CPT/HCPCS: 93010 ==

== ENCOUNTER → 2024-09-30 11:13 | Outpatient (BNV) | payer BC, MEDICARE, SELFPAY | PROVIDERS: Emergency Provider Emergency Medicine; PCP Internal Medicine; Visit Provider Radiology Vascular & Interventional Radiology | DX: R10.11 Right upper quadrant pain (principal); R07.89 Other chest pain | CPT/HCPCS: 71046; 76705 ==

== ENCOUNTER 2024-11-13 11:36 | Outpatient (REF) | payer BC, SELFPAY ==
[2024-11-13 14:35] LABS: PSA,Total (Free>4and<10) 5.14 ng/mL (0.00-4.00)
--- OUTSIDE RECORDS SUMMARY | 2024-11-13 15:49 | XMS_ITS | Encounter Summary ---
Author Organization [employer] Address [address] [place] [address] [place] [address] Care Team Providers Care Exhibit Preparator Name Role Phone Artie Portillo MD Primary Care Provide r Encounter Details Date Type Department Care Team (Late st Contact Info) Description 05/07/2022 Orders Only [facility]EDS [address] [place] [address] Avril Alvarez LPN Social History Tobacco Use Types Packs/Day Years Used Date Smoking Tobacco: Never Assessed Sex and Gender Information Value Date Recorded Sex Assigned at Male 12/28/2021 10:21 AM EDT Legal Sex Male 10:21 AM EDT Gender Identity Male 12/28/2021 10:21 AM EDT Sexual Orientation Straight 12/28/2021 10 :21 AM EDT documented as of this encounter Plan of Treatment Upcoming Encounters Date Type Department Care Team (Late st Contact Info) Description 02/05/2025 11:15 AM EST Office Visit [facility] [address] [place] [address] Artie Portillo MD [address] [place] [address] documented as of this encounter Visit Diagnoses Not on filedocumented in this encounter Care Teams Exhibit Preparator Relationship Specialty Start Date End Date Artie Portillo MD [address] [place] [address] PCP - General Internal Medicine 01/07/14 documented as of this encounter
--- OUTSIDE RECORDS SUMMARY | 2024-11-13 15:49 | XMS_ITS | Encounter Summary ---
Author Organization [facility] Address [address] [place] [address] Care Team Providers Care Stable Helper Name Role Phone Artie Portillo MD Primary Care Provide r Encounter Details Date Type Department Care Team (Late st Contact Info) Description 02/18/2022 Orders Only [facility] [address] [place] [id number] Amirah Figueroa LPN Social History Tobacco Use Types Packs/Day [...] Description 02/05/2025 11:15 AM EST Office Visit [facility] [address] [place] [address] Artie Portillo MD [address] [place] [address] documented as of this encounter Visit Diagnoses Not on filedocumented in this encounter Care Teams Stable Helper Relationship Specialty Start Date End Date Artie Portillo MD [address] [place] [id number] PCP - General Internal Medicine 01/07/14 documented as of this encounter
--- OUTSIDE RECORDS SUMMARY | 2024-11-13 15:49 | XMS_ITS | Encounter Summary ---
Author Organization [employer] Address [address] [place] [address] [place] [address] Care Team Providers Care Insect Control Aide Name Role Phone Artie Portillo MD Primary Care Provide r Reason for Visit * Reason Onset Date Comments January11/12/2024 Encounter Details Date Type Department Care Team ([facility] st Contact Info) Description 11/12/2024 Telephone [facility] [address] [place] [address] Artie Portillo MD [address] [place] [address] January recall Social History Tobacco Use Types Packs/Day Years Used Date Smoking Tobacco: Never Passive Smoke Exposure: Never Smokeless Tobacco: Never Alcohol Use Standard Drinks/Week Comments Never 0 (1 standard drink = 0.6 oz pur e alcohol) Depression Answer Date Recorded Patient Health Questionnaire-9 Score 0 03/20/2024 Patient Health Questionnaire-9 Score 0 03/20/2024 Last PHQ-9: Questionnaire Data Not on file 0 03/20/2024 Housing Stability Answer Date Recorded What is your housing situation today? I have david mejia 03/20/[address] you li ve. Do you have problems with any of the following? None of the above 03/20/2024 Food Insecurity Answer Date Recorded Within the past 12 months, y ou worried that your food would run out before you got money to buy more: Never True 03/20/2024 Within the past 12 months,th e food you bought just didn't last and you didn't have enough money to get more: Never True Transportation Answer Date Recorded In the past 12 months, has l ack of transportation kept you from medical appts, meetings, work or from getting things needed for daily living? No 03/20/2024 Utilities Answer Date Recorded In the past 12 months, has t he electric, gas, oil or water company threatened to shut off services in your home? No 03/20/2024 Depression Answer Date Recorded Patient Health Questionnaire-2 Score 0 03/20/2024 Internet Access Answer Date Recorded Internet Access Q1 Yes 03/20/2024 Internet Access Q2 Not on file 03/20/2024 Sex and Gender Information Value Date Recorded Sex Assigned at Male 12/28/2021 10:21 AM EDT Legal Sex Male 10:21 AM EDT Gender Identity Male 12/28/2021 10:21 AM EDT Sexual Orientation Straight 12/28/2021 10 :21 AM EDT documented as of this encounter Miscellaneous Notes * Telephone Encounter - Lindsay Zaragoza MA - 11/12/2024 2:55 PM EDT Telephone call to patient to schedule the following recall: Visit type: Office visit Appointment notes: HTN Patient agree to appointment on 02/05/25 at 11:15 AM with Derrick. documented in this encounter Plan of Treatment Upcoming Encounters Date Type Department Care Team (Late st Contact Info) Description 02/05/2025 11:15 AM EST Office Visit [facility] [address] [place] [address] Artie Portillo MD [address] [place] [address] documented as of this encounter Visit Diagnoses Not on filedocumented in this encounter Additional Health Concerns Assessment Noted Time PHQ-9 Depression Total Score: 0 03/20/19 11:26 AM EST documented as of this encounter Care Teams Insect Control Aide Relationship Specialty Start Date End Date Artie Portillo MD [address] [place] [id number] PCP - General Internal Medicine 11/10/14 documented as of this encounter
--- OUTSIDE RECORDS SUMMARY | 2024-11-13 15:49 | XMS_ITS | Clinical Summary ---
Author Organization [employer] Address [address] [place] [address] [address] [place] [address] Care Team Providers Care Cloth Examiner Hand Name Role Phone Artie Portillo MD Primary Care Provide r Allergies No known active allergies Medications aspirin 81 MG EC tablet Take 1 tablet by mouth in the morning. 7 Active amLODIPine (Norvasc) 5 MG tabletIndications:H ypertension, unspecified type Take 1 tablet (5 mg) by mouth Once per day. 90 tablet 1 5 Active metoprolol succinate XL (Toprol-XL) 50 MG 24 hr tabletIndications:P rimary hypertension Take 1 tablet (50 mg) by mouth Once per day. Do not crush or chew. 90 tablet 1 5 Active atorvastatin (Lipitor) 40 MG tabletIndications:M ixed hyperlipidemia Take 1 tablet (40 mg) by mouth at bedtime. 90 tablet 1 5 Active Active Problems Problem Noted Date Diagnosed Date Right upper quadrant abdominal pain 10/30/2024 Assessment & Plan (10/30/2024 10:58 AM EDT): Seen in the ER 09/30/2024 Work up included an Abdominal US that was normal. Pt states pain went away completely BMI 29.0-29.9,adult 06/02/2023 Assessment & Plan (06/02/2023 10:43 AM EDT): Patient has been counseled and educated about diet and exercise. Personal goal of weight loss discussed Elevated PSA 11/23/2022 Assessment & Plan (10/30/2024 10:51 AM EDT): Under the care of Urology seen last 07/20/2024 Pt will continue to follow up with Urology has a follow up in October Assessment & Plan (03/20/2024 11:34 AM EST): Under the care of Urology seen last 02/20/2024 On [facility] Assessment & Plan (06/02/2023 10:41 AM EDT): Under the care of Urology seen last 04/2023 On Fin[facility]ide Assessment & Plan (11/23/2022 12:09 PM EDT): Referred to Urology, seen yesterday records requested Screening for colorectal cancer 11/23/2022 Assessment & Plan (11/23/2022 12:10 PM EDT): Will refer for repeat colonoscopy last time done in 2011 [facility] 05/25/2022 Assessment & Plan (06/02/2023 10:42 AM EDT): PSA 09/23/2022 elevated 5.18 Pt under the care of Urology Colonoscopy: 12/2022 Dr Kaye 10 year f/u Vaccines: Zoster : 03/29/2014 Tdap: Assessment & Plan (11/23/2022 11:49 AM EDT): PSA 09/23/2022 elevated 5.18 Pt referred to Urology Colonoscopy: 10/04/2011 Dr Vargas Gibbons year f/u Vaccines: Zoster : 03/29/2014 Tdap: Assessment & Plan (05/25/2022 8:33 AM EDT): PSA 06/05/2018 Normal Colonoscopy: 10/04/2011 Dr Vargas Gibbons year f/u Vaccines: Zoster : 03/29/2014 Tdap: Gastroesophageal reflux disease without esophagi tis 05/25/2022 Assessment & Plan (05/25/2022 8:42 AM EDT): Improved on PPIs Pt was referred to Gastroenterology. pt cancelled appointment since symptoms went away. Previously he told me he had the EGD done in [facility] and was told it was normal, I asked for a copy of the report previously. Pt was seen by ENT 2020, Exam was unrevealing, ENT ordered CT of sinuses, does not seem like it was done Coronary artery disease invo lving [place] coronary artery of [place] heart without angina pectoris 05/25/2022 Assessment & Plan (10/30/2024 10:46 AM EDT): Pt denies chest pain Pt has CAD s/p FL in 2005 in [facility] and apparently had a stent placed, details of this are unknown. Pt evaluated in the past at [facility], last seen 08/20/2015. they performed a Stress ECHO that was negative for ischemia. recommended no further work up and 1 year follow up. But patient did not follow up . Seen by Cardiology Dr Mendoza 08/21/2024 Pt currently on Aspirin. LDL Goal is <70. Assessment & Plan (03/20/2024 11:57 AM EST): Pt denies chest pain Pt has CAD s/p FL in 2005 in [facility] and apparently had a stent placed, details of this are unknown. Pt evaluated in the past at [facility], last seen 08/20/2015. they performed a Stress ECHO that was negative for ischemia. recommended no further work up and 1 year follow up. But patient did not follow up . Today would like to be referred back. Pt currently on Aspirin. LDL Goal is <70. Assessment & Plan (05/25/2022 8:40 AM EDT): Pt denies chest pain Pt has CAD s/p FL in 2005 in [facility] and apparently had a stent placed, details of this are unknown. Pt evaluated in the past at [facility], last seen 08/20/2015. they performed a Stress ECHO that was negative for ischemia. recommended no further work up and 1 year follow up. But patient did not follow up Pt currently on Aspirin. LDL Goal is <70. Meralgia paresthetica 05/24/2022 Assessment & Plan (05/25/2022 8:43 AM EDT): Sent for NCS previously Hyperlipidemia 06/29/2016 Assessment & Plan (10/30/2024 10:44 AM EDT): Patient with hyperlipidemia Most recent lipid profile from: Lab Results Component Value Date TRIG 88 07/11/2024 TRIG 113 08/24/2023 CHOL 156 07/11/2024 CHOL 128 08/24/2023 LDLCHOLCAL 93 07/11/2024 LDLCHOLCAL 60 08/24/2023 HDL 46 07/11/2024 HDL 46 08/24/2023 Currently on a regimen of: Atorvastatin 40 mg po q pm . For now will continue with current regimen. advised to try to adhere to a low cholesterol diet, counseled and educated about diet and exercise, Patient encouraged to come up with a personal goal for weight loss. Assessment & Plan (03/20/2024 11:35 AM EST): Patient with hyperlipidemia Most recent lipid profile from: Lab Results Component Value Date TRIG 113 08/24/2023 TRIG 82 09/23/2022 CHOL 128 08/24/2023 CHOL 118 09/23/2022 LDLCHOLCAL 60 08/24/2023 LDLCHOLCAL 58 09/23/2022 HDL 46 08/24/2023 HDL 44 09/23/2022 Currently on a regimen of: Atorvastatin 40 mg po q pm . For now will continue with current regimen. Repeat Lipid profile advised to try to adhere to a low cholesterol diet, counseled and educated about diet and exercise, Patient encouraged to come up with a personal goal for weight loss. Assessment & Plan (06/02/2023 10:41 AM EDT): Patient with hyperlipidemia Most recent lipid profile from: 09/23/2022 shows a total cholesterol of: 118 triglycerides of: 82 HDL of: 44 and LDL of: 46 Currently on a regimen of: Atorvastatin 40 mg po q pm . For now will continue with current regimen. Repeat Lipid profile advised to try to adhere to a low cholesterol diet, counseled and educated about diet and exercise, Patient encouraged to come up with a personal goal for weight loss. Assessment & Plan (11/23/2022 11:48 AM EDT): Patient with hyperlipidemia Most recent lipid profile from: 09/23/2022 shows a total cholesterol of: 118 triglycerides of: 82 HDL of: 44 and LDL of: 46 Currently on a regimen of: Atorvastatin 40 mg po q pm . For now will continue with current regimen advised to try to adhere to a low cholesterol diet, counseled and educated about diet and exercise, Patient encouraged to come up with a personal goal for weight loss. Assessment & Plan (05/25/2022 8:38 AM EDT): Patient with hyperlipidemia Most recent lipid profile from: 09/02/2020 shows a total cholesterol of: 113 triglycerides of: 100 HDL of: 48 and LDL of: 46 Currently on a regimen of: Atorvastatin 40 mg po q pm . Most recent LFT'S from: 06/05/2018 showed a GOT of: 25 and a GPT of: 35 For now will continue with current regimen Pt will have repeat Lipid profile prior to next visit. Pt has yet to have the blood work ordered by Dr Li advised to try to adhere to a low cholesterol diet, counseled and educated about diet and exercise, Patient encouraged to come up with a personal goal for weight loss. Benign hypertension 08/04/2011 Assessment & Plan (10/30/2024 10:47 AM EDT): Patient here for a f/u BP controlled on a regimen of: Amlodipine 5 mg po daily and Toprol XL 50 mg po daily Given adequate blood pressure control will continue with current medical regimen. Most recent electrolytes, Bun and Creatinine done on: Lab Results Component Value Date NA 140 09/30/2024 NA 141 07/11/2024 K 4.6 09/30/2024 K 4.3 07/11/2024 CL 109 (H) 09/30/2024 CL 110 (H) 07/11/2024 BUN 11 09/30/2024 BUN 13 07/11/2024 CREATININE 0.86 09/30/2024 CREATININE 0.96 07/11/2024 were within normal limits. patient advised to adhere to a low sodium diet, encouraged about medication compliance, counseled about weight loss. Assessment & Plan (03/20/2024 11:33 AM EST): Patient here for a f/u BP controlled on a regimen of: Amlodipine 5 mg po daily and Toprol XL 50 mg po daily Given adequate blood pressure control will continue with current medical regimen. Most recent electrolytes, Bun and Creatinine done on: Lab Results Component Value Date NA 141 08/24/2023 NA 139 09/23/2022 K 3.6 08/24/2023 K 4.0 09/23/2022 CL 111 (H) 08/24/2023 CL 107 09/23/2022 BUN 12 08/24/2023 BUN 13 09/23/2022 CREATININE 0.97 08/24/2023 CREATININE 0.92 09/23/2022 were within normal limits. Today will order a repeat BMP patient advised to adhere to a low sodium diet, encouraged about medication compliance, counseled about weight loss. Assessment & Plan (06/02/2023 10:40 AM EDT): Patient here for a f/u BP controlled on a regimen of: Amlodipine 5 mg po daily and Toprol XL 50 mg po daily Given adequate blood pressure control will continue with current medical regimen. Most recent electrolytes, Bun and Creatinine done on: 09/23/2022 were within normal limits. Today will order a repeat BMP patient advised to adhere to a low sodium diet, encouraged about medication compliance, counseled about weight loss. Assessment & Plan (11/23/2022 11:41 AM EDT): Patient here for a f/u BP controlled on a regimen of: Amlodipine 5 mg po daily and Toprol XL 50 mg po daily Given adequate blood pressure control will continue with current medical regimen. Most recent electrolytes, Bun and Creatinine done on: 09/23/2022 were within normal limits. patient advised to adhere to a low sodium diet, encouraged about medication compliance, counseled about weight loss. Assessment & Plan (05/25/2022 8:37 AM EDT): Patient here for a f/u BP controlled on a regimen of: Amlodipine 5 mg po daily and Toprol XL 50 mg po daily Given adequate blood pressure control will continue with current medical regimen. Most recent electrolytes, Bun and Creatinine done on: 09/02/2020 were within normal limits. Will repeat patient advised to adhere to a low sodium diet, encouraged about medication compliance, counseled about weight loss. Encounters Date Type Department Care Team Description 11/12/2024 Telephone [facility] [address] [place] [address] Artie Portillo MD January recall 10/30/2024 10:30 AM EDT Office Visit [facility] [address] [facility] [place] [address] Artie Portillo MD Benign hypertension (Primary Dx); Mixed hyperlipidemia; Elevated PSA; Coronary artery disease involving [place] coronary artery of [place] heart without angina pectoris; Right upper quadrant abdominal pain 10/30/2024 Travel 10/23/2024 Patient Outreach [facility] [address] [facility] [place] [address] Artie Portillo MD Pre-visit Planning ([facility] screening is completed) 09/30/2024 Orders Only GENERIC EXTERNAL DATA DEPARTMENT Provider, Generic External Data from Last 3 Months Immunizations Immunization Administration Dates Next Due Influenza High-dose Quadrivalent Preservative Fr ee 12/18/2020 Influenza, IIV3, injectable 03/02/2014 Pneumococcal Polysaccharide PPSV23 03/27/2015 Tdap 03/29/2014 Zoster, live 03/29/2014 Social History Tobacco Use Types Packs/Day Years Used Date Smoking Tobacco: Never Passive Smoke Exposure: Never Smokeless Tobacco: Never Tobacco Cessation:Counseling Given: Not Answered Alcohol Use Standard Drinks/Week Comments Never 0 [...] Orientation Straight 12/28/2021 10 :21 AM EDT Last Filed Vital Signs Vital Sign Reading Time Taken Comments Blood Pressure 138/86 10/30/2024 10:55 AM EDT Pulse 88 10/30/2024 10:24 AM EDT Temperature 36.2 C (97.2 F) 10/30/2024 10:24 AM EDT Respiratory Rate 20 10/30/2024 10:24 AM EDT Oxygen Saturation 99% 10/30/2024 10:24 AM EDT Inhaled Oxygen Concentration - - Weight 78.7 kg (173 lb 9.6 oz) 10/30/2024 10:24 AM EDT Height 165.1 cm (5' 5 ) 10/30/2024 10:24 AM EDT Body Mass Index 28.89 10/30/2024 10:24 AM EDT Plan of Treatment Upcoming Encounters Date Type Department Care Team (Late st Contact Info) Description 02/05/2025 11:15 AM EST Office Visit [facility] [address] [place] [address] Artie Portillo MD [address] [place], [place] [phone] Health Maintenance Due Date Last Done Comments CT Colonography 1955 FIT DNA/Cologuard 1955 FIT 1955 FOBT 1955 Sigmoidoscopy 1955 RSV Patients and Patients Aged 60 years or older (1 - Risk 60-74 years 1-dose series) 2013 Zoster Vaccines (2 of 3) 05/24/2014 03/29/2014 Pneumococcal Vaccine: 50+ Years (2 of 2 - PCV) 03/27/2016 03/27/2015 DTaP/Tdap/Td Vaccines (2 - Td or Tdap) 03/29/2024 03/29/2014 COVID-19 Vaccine (4 - season) 2024 02/17/2021, 07/09/2020, 06/21/2020 Influenza Vaccine (#1) 2024 12/18/2020, 2014 Alcohol/Substance Use Screening 03/20/2025 03/20/2024 Depression Screening 03/20/2025 03/20/2024, 03/20/19 25 SDOH Screening 03/20/2025 03/20/2024 Tobacco Screening 03/20/2025 03/20/2024 Lipid Panel 07/11/2029 07/11/2024, 0607/2023, 09/23/2022, Additional history exists Colonoscopy 01/18/2033 01/18/2023 Colorectal Cancer Screening 01/18/2033 Hepatitis C Screening Completed 09/23/2022 HIB Vaccines Aged Out No longer eligi ble based on patient's age to complete this topic HPV Vaccines Aged Out No longer eligi ble based on patient's age to complete this topic Hepatitis A Vaccines Aged Out No long er eligible based on patient's age to complete this topic Hepatitis B Vaccines Aged Out No long er eligible based on patient's age to complete this topic IPV Vaccines Aged Out No longer eligi ble based on patient's age to complete this topic Meningococcal B Vaccine Aged Out No l onger eligible based on patient's age to complete this topic Meningococcal Vaccine Aged Out No marci eugene eligible based on patient's age to complete this topic RSV under 20 months Aged Out No longe r eligible based on patient's age to complete this topic Rotavirus Vaccines Aged Out No longer eligible based on patient's age to complete this topic Procedures Procedure Name Priority Date/Time Associated Diagnosis Comments PSA, TOTAL WITH REFLEX TO PSA, FREE Routine 11/13/2024 11:58 AM EDT XR CHEST 2 VIEWS Routine 09/30/2024 3:07 PM EDT HIGH SENSITIVITY TROPONIN I Routine 09/30/2024 2:35 PM EDT US ABDOMEN LIMITED Routine 09/30/2024 12 :07 PM EDT HIGH SENSITIVITY TROPONIN I Routine 09/30/2024 11:49 AM EDT LIPASE Routine 09/30/2024 11:49 AM EDT C-REACTIVE PROTEIN Routine 09/30/2024 11 :49 AM EDT MAGNESIUM Routine 09/30/2024 11:49 AM EDT BASIC METABOLIC PANEL Routine 09/30/2024 11:49 AM EDT HEPATIC FUNCTION PANEL Routine 09/30/2024 11:49 AM EDT CBC WITH AUTO DIFFERENTIAL Routine 09/30/2024 11:49 AM EDT LIPID PANEL, STANDARD Routine 07/11/2024 10:05 AM EDT Mixed hyperlipidemia HM COLONOSCOPY Routine 01/18/2023 HEPATITIS C ANTIBODY REFLEX Routine 09/23/2022 9:09 AM EDT from Last 3 Months or Most Recently Relevant to Health Maintenance Results * (ABNORMAL) PSA, Total With Reflex to PSA, Free (11/13/2024 11:58 AM EDT) PSA,Total (Free>4and<10) 5.14(H) 0.00 - 4.00 ng/mL [facility] Comment:PSA methodology: Blayne Schwartz i ChemiluminescentMicroparticle Immunoassay (CMIA) 11/13/2024 11:5 8 AM EDT 11/13/2024 1:22 PM EDT us Generic External Data Provider LAB BLOOD ORDERAB LES Final Result [facility] [address] [place] [address] [phone] * XR Chest 2 Views (09/30/2024 3:07 PM EDT) Anatomical Region Laterality Modality Chest Radiographic Michaela ging 09/30/2024 3:07 PM EDT Narrative 09/30/2024 3:08 PM EDT [place] [address] XRay Report Signed Patient: Wilver Helm MR#: [id number] 222 : 1955 Acct:[id number] Age/Sex: 68 / M ADM Date: 09/30/24 Loc: HO.ED Attending Dr: Ordering Physician: Landon Fields MD Date of Service: 09/30/24 Procedure(s): XR chest 2V Accession Number(s): [id number] cc: Artie Galvez MD; Landon Fields MD CLINICAL HISTORY: right sided pain Single view of the chest. COMPARISON: None provided. FINDINGS: Normal heart and mediastinal contours. No consolidation. No pleural effusion or pneumothorax. Flowing marginal osteophytes present throughout the mid to lower thoracic spine. No acute fracture. IMPRESSION: 1. No consolidation. This document has been electronically signed by: Duncan Roberts MD on 09/30/2024 15:07:50 Dictated By: Duncan Roberts MD Signed By: <Electronically signed by Duncan Roberts MD in OV> 09/30/24 1508 DD/ 1507 TD/TT: 09/30/24 1507 High Lift Operator: Procedure Note Donotuseinterpreter, Image - 09/30/2024 [place] [address] XRay Report Signed Patient: Manas Helm#: [id number] 222 : 4Acct:[id number] Age/Sex: 68 / MADM Date: 09/30/24 Loc: HO.ED Attending Dr: Ordering Physician: Landon Fields MD Date of Service: 09/30/24 Procedure(s): XR chest 2V Accession Number(s): [id number] cc: Artie Galvez MD; Landon Fields MD CLINICAL HISTORY: right sided pain Single view of the chest. COMPARISON: None provided. FINDINGS: Normal heart and mediastinal contours. No consolidation. No pleural effusion or pneumothorax. Flowing marginal osteophytes present throughout the mid to lower thoracic spine. No acute fracture. IMPRESSION: 1. No consolidation. This document has been electronically signed by: Duncan Roberts MD on 09/30/2024 15:07:50 Dictated By: Duncan Roberts MD Signed By: <Electronically signed by Duncan Roberts MD in OV> 09/30/24 1508 DD/ 1507 TD/TT: 09/30/24 1507 High Lift Operator: [facility] External Provider IMG XR PROCEDURES Edited Result - Final * High Sensitivity Troponin I (09/30/2024 2:35 PM EDT) Only the most recent of2 resultswithin the time period is included. TROPONIN I HIGH SENSITIVITY 3.5 <3.5 - 35.0 ng/L [facility] Comment:The Renteria high sens itivity Troponin-I results should beused in conjunction with other diagnostic information suchas ECG, clinical observations and information, and patientsymptoms to aid in the diagnosis of FL. 09/30/2024 2:35 PM EDT 09/30/2024 2:44 PM EDT Generic External Data Provider LAB BLOOD ORDERAB LES Final Result [facility] [address] [place] [address] [phone] * US Abdomen Limited (09/30/2024 12:07 PM EDT) Anatomical Region Laterality Modality Abdomen Ultrasound 09/30/2024 12:0 7 PM EDT Narrative 09/30/2024 12:08 PM EDT [address] [address] Ultrasound Report Signed Patient: Wilver Helm MR#: [id number] 222 : 1955 Acct:[id number] Age/Sex: 68 / M ADM Date: 09/30/24 Loc: HO.ED Attending Dr: Ordering Physician: Landon Fields MD Date of Service: 09/30/24 Procedure(s): US abdomen limited Accession Number(s): [id number] cc: Artie Galvez MD; Landon Fields MD CLINICAL HISTORY: RUQ pain, tenderness US abdomen limited Comparison: None provided Findings: The common duct is 3 mm in diameter. The gallbladder is normal. There is no sonographic Thapa sign. The main portal vein is antegrade. Impression: Normal gallbladder. This document has been electronically signed by: Austin Farmer MD on 09/30/2024 12:07:06 Dictated By: Austin Farmer MD Signed By: <Electronically signed by Austin Farmer MD in OV> 09/30/24 1208 DD/ 1207 TD/TT: 09/30/24 1207 High Lift Operator: Procedure Note Donotuseinterpreter, Image - 09/30/[address] [address] Ultrasound Report Signed Patient: Vandana HelmR#: [id number] 222 : 1955cct:[id number] Age/Sex: 68 / MADM Date: 09/30/24 Loc: .ED Attending Dr: Ordering Physician: Landon Fields MD Date of Service: 09/30/24 Procedure(s): US abdomen limited Accession Number(s): [id number] cc: Artie Galvez MD; Landon Fields MD CLINICAL HISTORY: RUQ pain, tenderness US abdomen limited Comparison: None provided Findings: The common duct is 3 mm in diameter. The gallbladder is normal. There is no sonographic Thapa sign. The main portal vein is antegrade. Impression: Normal gallbladder. This document has been electronically signed by: Austin Farmer MD on 09/30/2024 12:07:06 Dictated By: Asutin Farmer MD Signed By: <Electronically signed by Austin Farmer MD in OV> 09/30/24 1208 DD/ 120 TD/TT: 09/30/24 120 High Lift Operator: us [facility] External Provider IMG US PROCEDURES Edited Result - Final * (ABNORMAL) CBC auto differential (09/30/2024 11:49 AM EDT) White Blood Count 9.1 4.8 - 10.8 X10*3/uL [facility] Red Blood Count 4.40(L) 4.60 - 5.80 X10*6/uL [facility] Hemoglobin 14.6 14.0 - 18.0 g/dl [facility] Hematocrit 40.1(L) 42.0 - 52.0 % [facility] Mean Corpuscular Volume 91.1 80.0 - 98.0 fL [facility] Mean Corpuscular Hemoglobin 33.2(H) 27.0 - 33.0 pg [facility] Mean Corpuscular HGB Conc 36.4(H) 31.0 - 36.0 g/dl [facility] Red Cell Distribution Width 11.7 11.0 - 16.0 % [facility] Platelet Count 228 160 - 400 X10*3/uL [facility] Mean Platelet Volume 9.9 9.4 - 12.4 fL [facility] Neutrophils Percent Auto 83.3(H) 45 - 73 % [facility] Imm Gran Pct Auto 0.2 0.0 - 0.4 % [facility] Lymphocytes Percent Auto 10.0(L) 20 - 40 % [facility] Monocytes Percent Auto 6.1 2 - 11 % [facility] Eosinophils Percent Auto 0.2 0 - 4 % [facility] Basophils Percent Auto 0.2 0 - 2 % [facility] NRBC Pct Auto 0.0 0.0 - 0.2 /100WBC [facility] Neutrophils Absolute Auto 7.6 2.0 - 8.3 x10*3/uL [facility] Imm Gran Abs Auto 0.02 0.00 - 0.03 X10*3/uL [facility] Lymphocytes Absolute Auto 0.9(L) 1.2 - 4.9 X10*3/uL [facility] Monocytes Absolute Auto 0.6 0.1 - 1.2 X10*3/uL [facility] Eosinophils Absolute Auto 0.0 0.0 - 0.4 X10*3/uL [facility] Basophils Absolute Auto 0.0 0.0 - 0.2 X10*3/uL [facility] NRBC Abs Auto 0.000 0.0 - 0.012 X10*3/uL [facility] 09/30/2024 11:4 9 AM EDT 09/30/2024 11:54 AM EDT us Generic External Data Provider LAB BLOOD ORDERAB LES Final Result Performing Organization Address [facility]/ZIP Co de Phone Number [facility] [address] [place] [phone] * C-reactive Protein (09/30/2024 11:49 AM EDT) C Reactive Protein <0.10 < or = 0.50 mg/dL [facility] 09/30/2024 11:4 9 AM EDT 09/30/2024 11:54 AM EDT us Generic External Data Provider LAB BLOOD ORDERAB LES Final Result Performing Organization Address [facility]/ZIP Co de Phone Number [facility] [address] [place] [phone] * Magnesium (09/30/2024 11:49 AM EDT) Pathologist [facility] Magnesium 1.9 1.6 - 2.6 mg/dL [facility] 09/30/2024 11:4 9 AM EDT 09/30/2024 11:54 AM EDT Generic External Data Provider LAB BLOOD ORDERAB LES Final Result Performing Organization Address [facility] Co de Phone Number [facility] [address] [place] [phone] * Lipase (09/30/2024 11:49 AM EDT) Pathologist [facility] Lipase 27 8 - 78 U/L [facility] 09/30/2024 11:4 9 AM EDT 09/30/2024 11:54 AM EDT Generic External Data Provider LAB BLOOD ORDERAB LES Final Result Performing Organization Address [facility] de Phone Number [facility] [address] [place] [phone] * (ABNORMAL) Hepatic Function Panel (09/30/2024 11:49 AM EDT) Pathologist [facility] Bilirubin, Total 0.7 0.0 - 1.0 mg/dL [facility] Bilirubin, Direct 0.2 0.0 - 0.5 mg/dL [facility] Aspartate Amino Transferase 33 5 - 37 U/L [facility] Alanine Aminotransferase 45(H) 0 - 40 U/L [facility] Total Protein 7.1 6.5 - 8.0 g/dL [facility] [facility] Albumin Level 4.2 3.5 - 5.0 g/dL [facility] Alkaline Phosphatase 82 39 - 117 U/L [facility] 09/30/2024 11:4 9 AM EDT 09/30/2024 11:54 AM EDT us Generic External Data Provider LAB BLOOD ORDERAB LES Final Result Performing Organization Address City/[facility]/ZIP Co de Phone Number [facility] [address] [place] [phone] * (ABNORMAL) Basic Metabolic Panel (09/30/2024 11:49 AM EDT) Sodium 140 135 - 145 mmol/L [facility] Potassium 4.6 3.3 - 5.1 mmol/L [facility] Chloride 109(H) 96 - 108 mmol/L [facility] Carbon Dioxide 23 22 - 29 mmol/L [facility] Anion Gap 13 12 - 20 [facility] Urea Nitrogen (BUN) 11 9 - 16 mg/dL [facility] Creatinine, Serum 0.86 0.5 - 1.4 mg/dL [facility] Creatinine Clr Calc Pharmacy 75.5 [facility] Comment:eGFR (calculated fro m the MDRD study equation) and eCrCl(calculated from the Cockcroft-Gault equation) are based ondifferent parameters and may not yield comparable results.If eCrCl result is absurd, please check patient'sheight/weight. Estimated Glomerular Filt Rate >60 [facility] Comment:Chronic Kidney Disea se: Estimated GFR < 60 mL/min/[id number] Kidney Disease: Estimated GFR < 15 mL/min/1.73m2 Glucose 116(H) 60 - 115 mg/dL [facility] Calcium 8.7 8.4 - 10.2 mg/dL [facility] 09/30/2024 11:4 9 AM EDT 09/30/2024 11:54 AM EDT us Generic External Data Provider LAB BLOOD ORDERAB LES Final Result Performing Organization Address City/[facility]/ZIP Co de Phone Number [facility] [address] [place] [phone] * Lipid Panel, Standard (07/11/2024 10:05 AM EDT) Triglycerides 88 <150 mg/dL [facility] Comment:Desirable Triglyceri de: less than 150 mg/dLBorderline High Triglyceride 150-199 mg/dLHigh Triglyceride: 200-499 mg/dLVery High Triglyceride: greater than or equal to 5OO mg/dL Cholesterol 156 <200 mg/dL [facility] Comment:Desirable Cholestero l: less than 200 mg/dLBorderline High Cholesterol: 200-239 mg/dLHigh Cholesterol: greater than 239 mg/dL LDL Cholesterol Calculated 93 <100 mg/dL [facility] Comment:Desirable LDL: less than 100 mg/dLNear Optimal/Above Optimal LDL: 110- 129 mg/dLBorderline High LDL: 130-159 mg/dLHigh LDL: 160-189 mg/dLVery High LDL: greater than or equal to 190 mg/dL HDL Cholesterol 46 >40 mg/dL [facility] Comment:Desirable HDL: great er than 40 mg/dL Note: This HDL assay may give artificially low results in patients with liver disease. Blood Venous blood specimen / Unknown 07/11/2024 10:05 AM EDT 07/11/2024 11:21 AM EDT Artie Alcala MD LAB BLOOD ORDERABLES Final Result [facility] [address] [place] [phone] * Hm Colonoscopy (01/18/2023) Colonoscopy Normal Normal Erick Gibson MD HEALTH MAINTENANCE Final Result * Hepatitis C Antibody Reflex (09/23/2022 9:09 AM EDT) Hepatitis C Antibody Nonreactive Nonreactive [facility] Comment:Antibodies to HCV no t detected; does not exclude early acuteHCV infection. 09/23/2022 9:0 9 AM EDT 09/23/2022 11:18 AM EDT Artie Alcala MD LAB BLOOD ORDERABLES Final Result [facility] [address] [place] [phone] from Last 3 Months or Most Recently Relevant to Health Maintenance Insurance [facility] H[facility] Care Teams Cloth Examiner Hand Relationship Specialty Start Date End Date Artie Portillo MD [address] [place] [phone] PCP - General Internal Medicine 01/07/14
--- OUTSIDE RECORDS SUMMARY | 2024-11-13 15:49 | XMS_ITS | Encounter Summary ---
Author Organization [employer] Address [address] [place] [address] [place] [address] Care Team Providers Care Commercial Escrow Assistant Name Role Phone Artie Portillo MD Primary Care Provide r Reason for Visit * Reason Onset Date Comments Med Refill 06/02/2023 Encounter Details Date Type Department Care Team ([facility] st Contact Info) Description 06/02/2023 Refill [facility] [address] [place] [phone] Artie Portillo MD [address] [place] [address] Social History Tobacco Use Types Packs/Day Years Used Date Smoking Tobacco: Never Passive Smoke Exposure: Never Smokeless Tobacco: Never Alcohol Use Standard Drinks/Week Comments Never 0 (1 standard drink = 0.6 oz pur e alcohol) Depression Answer Date Recorded Patient Health Questionnaire-9 Score 1 11/23/2022 Housing Stability Answer Date Recorded What is your housing situation today? I have david mejia 01/05/[address] you li ve. Do you have problems with any of the following? None of the above 01/05/2023 Food Insecurity Answer Date Recorded Within the past 12 months, y ou worried that your food would run out before you got money to buy more: Never True 01/05/2023 Within the past 12 months,th e food you bought just didn't last and you didn't have enough money to get more: Never True 09/2022 Transportation Answer Date Recorded In the past 12 months, has l ack of transportation kept you from medical appts, meetings, work or from getting things needed for daily living? No 01/05/2023 Utilities Answer Date Recorded In the past 12 months, has t he electric, gas, oil or water company threatened to shut off services in your home? No 01/05/2023 Depression Answer Date Recorded Patient Health Questionnaire-2 Score 0 11/23/2022 Sex and Gender Information Value Date Recorded Sex Assigned at Male 12/28/2021 10:21 AM EDT Legal Sex Male 10:21 AM EDT Gender Identity Male 12/28/2021 10:21 AM EDT Sexual Orientation Straight 12/28/2021 10 :21 AM EDT documented as of this encounter Plan of Treatment Upcoming Encounters Date Type Department Care Team (Late st Contact Info) Description 02/05/2025 11:15 AM EST Office Visit [facility] [address] [place] [address] Artie Portillo MD [address] [place] [address] documented as of this encounter Visit Diagnoses Not on filedocumented in this encounter Additional Health Concerns Assessment Noted Time PHQ-9 Depression Total Score: 1 11/24/19 23 11:37 AM EDT documented as of this encounter Care Teams Commercial Escrow Assistant Relationship Specialty Start Date End Date Artie Portillo MD [address] [place] [phone] PCP - General Internal Medicine 01/07/14 documented as of this encounter
[2024-11-14 12:03] LABS: Free Prostate Spec Ag 0.6 ng/mL; Percent Free Prostate Spec Ag 14 % (calc) (>25)
== END 2024-11-13 11:37 | disposition home or self-care (01) ==
LOC: HO.HHCL 11:36
PROVIDERS: PCP Internal Medicine; Visit Provider Urology
DX: R97.20 Elevated prostate specific antigen [PSA] (principal); R39.9 Unspecified symptoms and signs involving the genitourinary system; Z12.5 Encounter for screening for malignant neoplasm of prostate
CPT/HCPCS: 36415; 84153; 84154

== ENCOUNTER 2024-11-22 10:34 | Outpatient (AMB) | payer BC, SELFPAY ==
--- NOTE | 2024-11-22 11:00 | A.OFFVIS_ITS ---
Intake Visit Reasons: 4m/PSA Intake Note: patient presents today for: 4mo/PSA urology medications: dutasteride blood thinners: none Lead Maintenance Technician Required: Yes Accompanied by: Self / Same As Patient Allergies No Known Drug Allergies (NO KNOWN DRUG ALLERGIES) Allergy (Unknown, Verified 11/22/24 11:01) NONE HPI Comments Details: Wilver is a pleasant Polish-speaking male. He is a patient of Dr. Meza. He is seen for the following urologic conditions - fluctuating PSA Four month follow-up On dutasteride PSA fell to 4.3 14% free Move to six-month interval surveillance Elevated PSA Imaging - retroperitoneal ultrasound showing bilateral kidneys no calculi, well distended bladder, prostate volume 30 cc Currently taking dutasteride Family history positive prostate cancer Has been on treatment 5 mg finasteride 06/16 3.4, 09/19 5.2, 12/20 4.8 % free PSA 13%, 04/23 2.8, 08/21 4.2, 02/20 4.3 % free PSA 15, 07/22 6.0 12%, 11/22 4.3 14% Erectile dysfunction Daily [facility] Medical History Encounter for screening colonoscopy Cataract Hx of myocardial infarction History of CAD (coronary artery disease) GERD (gastroesophageal reflux disease) Benign hypertension Hyperlipidemia Meralgia paraesthetica Surgical History History of cataract surgery H/O colonoscopy History of elbow surgery History of surgery on lower extremity Family History Father Prostate cancer Social History Patient Tobacco Use Status: Never used Tobacco Review of Systems Const Denies chills and Denies fever(s) Card Reports no additional complaints and Denies syncope Resp Denies cough GI Denies abdominal pain and Denies heartburn Reports as per HPI and Denies change in libido Neuro Denies syncope Psych Denies change in libido Endo Denies change in libido Physical Exam Const General: cooperative, healthy appearing, comfortable and no acute distress Orientation/consciousness: patient oriented x3 HEENT Face and sinus: Yes normal facial exam Mouth: moist mucous membranes Neck Neck: Yes normal visual inspection, Yes full ROM and Yes trachea midline Chest Chest palpation & inspection: normal inspection of the chest Resp Effort & Inspection: normal respiratory effort, able to speak in complete sentences and no respiratory distress GI Inspection: Yes normal to inspection Back/Spine/Pelvis Cervical Spine: normal cervical lordosis Thoracic/Lumbar Spine: thoracic and lumbar spine normal to inspection Skin General skin exam: no rashes or lesions noted Neuro General: patient oriented x3, gait normal, tone normal and moves all extremities Extrem General: Yes normal to inspection and Yes capillary refill normal Assessment & Plan Assessment & Plan (1) Lower urinary tract symptoms: Code(s): R39.9 - Unspecified symptoms and signs involving the genitourinary system Category: Medical (2) Elevated PSA: Code(s): R97.20 - Elevated prostate specific antigen [PSA] Category: Medical Plan Six-month follow-up Remain on dutasteride Orders: Orders Prostate Specific Antigen 6 Months R97.20 - Elevated prostate specific antigen [PSA] Medications: Refilled dutasteride 0.5 mg PO DAILY 90 caps 1RF 90 days N13.8 - Other obstructive and reflux uropathy, N40.1 - Benign prostatic hyperplasia with lower urinary tract symptoms, R39.9 - Unspecified symptoms and signs involving the genitourinary system Patient Instructions: This note is constructed using voice recognition software. While every effort has been made to ensure accuracy legal billing clerk errors may have been included. Imaging studies, laboratory and physical exam results were discussed and reviewed in detail. No major barriers to patient understanding were identified. An opportunity to ask questions regarding the treatment plan was provided. All questions were answered. The patient expressed understanding and agreement with the above treatment plan. The patient is aware they should contact our office by phone for worsening of their current condition or the appearance of new urologic symptoms. Compliance is encouraged with any medications and followup testing that is ordered. It is a privilege to participate in the urologic care of your patient. If you have any questions or concerns regarding treatment for the above conditions, or other urologic issues, please do not hesitate to contact me. The office telephone contact is [phone]. Sincerely, Dr Raymundo Viveros MD, [facility] - Urology Compassionate Specialist Care for the Genitourinary System Coding Level of Care Code Est Pt Level 3 (21020) Complex EM visit Add On G2211 Diagnoses Lower urinary tract symptoms R39.9 Elevated PSA R97.20
== END 2024-11-22 11:25 | disposition home or self-care (01) ==
LOC: HO.HUSH 10:34
PROVIDERS: PCP Internal Medicine; Visit Provider Urology
DX: R39.9 Unspecified symptoms and signs involving the genitourinary system (principal); R97.20 Elevated prostate specific antigen [PSA]
CPT/HCPCS: 99213

== ENCOUNTER 2025-02-05 11:59 | Outpatient (REF) | payer BC, SELFPAY ==
--- NOTE | ~2025-02-05 | XR_ITS ---
EXAMINATION: XR ELBOW, LEFT CLINICAL INFORMATION: left elbow pain COMPARISON: None available. TECHNIQUE: AP, lateral, and oblique views of the left elbow. FINDINGS: Extensive ORIF of old fractures is present. There is plate and screw fixation of the olecranon/ulna. There is a compression screw within the medial epicondyle. There are 2 compression screws within the capitellum, which is partially chronically fragmented. All the hardware appears intact and well seated. No definite loosening or failure seen. There are at least moderate posttraumatic changes of arthritis throughout the elbow joint. No definite acute fracture is identified. Lateral view is slightly suboptimal due to obliquity. No definite joint effusion is evident. No soft tissue abnormalities. XR/XR elbow LT min 3V IMPRESSION: 1. Extensive ORIF of prior fractures. Hardware appears intact without complication present. 2. 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 3. No definite acute fractures seen. No evidence of joint effusion. Electronically signed by: Jorge Correa MD 02/05/2025 01:28 PM [facility]
--- NOTE | ~2025-02-05 | XR_ITS ---
EXAMINATION: XR FOOT, LEFT CLINICAL INFORMATION: left foot pain COMPARISON: Previous x-ray from 2019 TECHNIQUE: AP, lateral, and oblique views of the left foot. FINDINGS: Bone alignment is normal. No acute fracture or dislocation. Again question postsurgical changes to the first metatarsal head versus old trauma. Cystic or erosive changes in the medial first MTP joint primarily involving the first metatarsal head. Cystic erosive changes at the medial first IP joint and lateral PIP joint of the third toe. This is similar to 2019 exam and findings are again questionable for changes from gout. Mild degenerative change at the first and second MTT joints. Small plantar calcaneal spur. Soft tissues are unremarkable. XR/XR foot LT min 3V IMPRESSION: Question posttraumatic versus postsurgical change to the first metatarsal head. Erosive changes of the medial IP and MTP joints of the great toe and lateral aspect of the PIP joint of the third toe. Appearance again concerning for gout. Degenerative changes of the midfoot. Electronically signed by: Shira Corral MD 02/05/2025 01:33 PM [facility]
== END 2025-02-05 12:00 | disposition home or self-care (01) ==
LOC: HO.HHCX 11:59
PROVIDERS: PCP Internal Medicine; Visit Provider Internal Medicine
DX: M25.522 Pain in left elbow (principal); M79.672 Pain in left foot
CPT/HCPCS: 73080; 73630

== ENCOUNTER → 2025-02-05 12:10 | Outpatient (BNV) | payer BC, SELFPAY | PROVIDERS: PCP Internal Medicine; Visit Provider Radiology Diagnostic Radiology | DX: M19.122 Post-traumatic osteoarthritis, left elbow (principal); M19.072 Primary osteoarthritis, left ankle and foot | CPT/HCPCS: 73080; 73630 ==